=== PATIENT | male | born 1940 | race Caucasian/White ===

== ENCOUNTER 2022-02-15 12:39 | Inpatient (IN) ==
[2022-02-15 14:24] LABS: Basophils # (auto) 0.04 K/uL (0-0.2); Basophils % (auto) 0.5 %; Eosinophils # (auto) 0.17 K/uL (0-0.50); Eosinophils % (auto) 1.9 %; Hematocrit (blood only) 46.1 % (40.1-51.0); Hemoglobin 15.4 g/dl (14.0-18.0); Immature Granulocytes # (auto) 0.02 K/uL (0.00-0.02); Immature Granulocytes % (auto) 0.2 %; Lymphocytes # (auto) 2.33 K/uL (1.2-3.4); Lymphocytes % (auto) 26.4 %; Mean Corpuscular Hemoglobin 31.1 pg (25.0-34.0); Mean Corpuscular Hgb Conc 33.4 g/dL (32.0-36.0); Mean Corpuscular Volume 93.1 fL (80.0-100.0); Mean Platelet Volume 8.8 fL (9.4-12.4); Monocytes # (auto) 0.58 K/uL (0.24-0.82); Monocytes % (auto) 6.6 %; Neutrophils # (auto) 5.69 K/uL (1.4-6.5); Neutrophils % (auto) 64.4 %; Platelet Count 326 K/uL (130-400); RDW Coefficient of Variation 14.8 % (11.5-14.5); Red Blood Count 4.95 M/uL (4.63-6.08); White Blood Count 8.83 K/ul (4.8-10.8)
[2022-02-15 14:55] LABS: Alanine Aminotransferase 12 U/L (7-52); Albumin Globulin Ratio 1.6 (0.9-2); Albumin Level 4.2 gm/dl (3.4-5.0); Alkaline Phosphatase 120 U/L (34-104); Anion Gap 7 (3-11); Aspartate Aminotransferase 14 U/L (13-39); BUN Creatinine Ratio 15.3 (10-20); Bilirubin,Total 0.5 mg/dl (0.2-1.0); Blood Urea Nitrogen 19 mg/dl (6-23); Calcium 9.5 mg/dl (8.5-10.1); Carbon Dioxide 27 mmol/L (21-32); Chloride 103 mmol/L (98-107); Est GFR (African American) 61.9 ml/min; Est GFR (Non-African American) 53.4 ml/min; Globulin 2.7 gm/dl (2.5-4.0); Glucose 91 mg/dl (70-99(Fasting)); Potassium 4.5 mmol/L (3.5-5.1); Sodium 137 mmol/L (136-145); Total Protein 6.9 gm/dl (6.0-8.3)
[2022-02-15] MEDS ORDERED: OPTIRAY 320 500ml IV ONE (16:35)
--- NOTE | 2022-02-15 16:51 | CT Scan Report ---
UNENHANCED CT OF THE BRAIN; CT ANGIOGRAM OF THE BRAIN; CT ANGIOGRAM OF THE NECK CLINICAL HISTORY: Transient ischemic attack. COMPARISON STUDY: CT of the brain dated 02/12/2022. TECHNIQUE: Unenhanced axial CT scan of the brain is performed. Subsequently, following the IV adminis tration of 117 of [address] [address], CT angiogram of the head and neck was performed from the aortic arch t o the vertex. Images are reviewed in the axial, sagittal, and coronal planes. 3-D MIPS images are cre ated and assessed. IV contrast was administered without complication. All measurements were calculate d based on NASCET criteria. A dose lowering technique was utilized adhering to the principles of ALA RA. CT DOSE: 1108.22 mGy.cm FINDINGS: Brain parenchyma: There is age-related involutional change noting mild subcortical and periventricula r microangiopathic disease. There is no hemorrhage, mass effect, or evidence of acute territorial isc hemia by CT criteria. There is no evidence of enhancing mass lesion on the angiogram phase images. Th e ventricles, sulci, and cisterns are prominent secondary to involutional change. Brown-white matter d ifferentiation is preserved. No extra-axial fluid collection is seen. Thoracic aorta: There is atherosclerotic calcification of the thoracic aorta. Visualized portions of the thoracic aorta are normal in caliber. The aortic arch demonstrates variant 3-vessel anatomy. Ther e is a bovine arch, and the left vertebral artery arises directly from the thoracic aorta. Right carotid arterial system: The right common carotid artery is widely patent, as are the right int ernal and external carotid arteries. Calcified plaque is noted in the carotid bulb. Left carotid arterial system: The left common carotid artery is widely patent, as are the left internal medicine nurse practitioner al and external carotid arteries. Calcified plaque is seen in the carotid bulb. Vertebral arteries: The vertebral arteries are widely patent bilaterally and codominant. Subclavian arteries: Widely patent bilaterally. Intracranial vasculature: There is atherosclerotic calcification of the cavernous carotid and vertebr al arteries. The [place] of [place] is developmentally complete. The internal carotid arteries are kolb nt at the skull base, as are the anterior and middle cerebral arteries bilaterally. The vertebrobasil ar system and posterior cerebral arteries are widely patent. The vertebral arteries are codominant. T here is no aneurysm, high-grade stenosis, or focal vessel cut off seen throughout the intracranial ci rculation. Jugular veins: Patent bilaterally. Dural sinuses: Patent. Lung apices: Emphysematous change is seen at the apices. Upper lobe lung parenchyma is otherwise heavenly r as imaged. Soft tissues: The visualized pharyngeal soft tissues are normal in appearance noting angiographic pha se technique. The oropharyngeal airway appears widely patent. The salivary and thyroid glands are nor mal in appearance. No cervical lymphadenopathy is seen. Skeletal structures: The skeletal structures are osteopenic. The calvarium appears intact. The cervic al spine is maintained noting multilevel spondylosis. No lytic or blastic lesion is seen. Midline selena rnotomy wires are noted. Orbits: The bony orbits are intact. Orbital contents are normal as visualized noting a right ocular l ens implant. Sinuses and mastoids: There is mild mucosal thickening within the maxillary antra and ethmoid sinuses . Trace mucosal thickening is seen within the frontal and sphenoid sinuses. The mastoid air cells are well pneumatized. IMPRESSION: 1. There is no hemorrhage, mass effect, or evidence of acute territorial ischemia by CT criteria. 2. Unremarkable CT angiogram of the brain. 3. Unremarkable CT angiogram of the neck. 4. Emphysema. ACT 112: Negative or not required by law. Electronically signed by: Isauro Grullon M.D. 02/15/2022 4:49 PM
--- NOTE | 2022-02-15 18:29 | Electrocardiogram Report ---
Test Reason : Blood Pressure : / mmHG Vent. Rate : 072 BPM Atrial Rate : 072 BPM P-R Int : 198 ms QRS Dur : 090 ms QT Int : 384 ms P-R-T Axes : 007 010 042 degrees QTc Int : 420 ms Normal sinus rhythm Poor R wave progression, consider anterior AL vs. lead placement vs. LVH Abnormal ECG When compared with ECG of 12-FEB-2022 15:53, Questionable change in initial forces of Anteroseptal leads Confirmed by Kamran Kaplan ([id number]) on 02/15/2022 6:29:22 PM Referred By: Confirmed By:Joseluis Kaplan
--- NOTE | 2022-02-15 20:46 | Emergency Department Note ---
Impression & Plan Acute lacunar stroke ADMIT ED Provider Note HPI: The patient is an 81-year-old male who presents the emergency department with a chief complaint of transient headaches and visual changes that been ongoing for the past 3 days. Patient was evaluated here in the ED on 02/12 for headache and confusion, he was discharged home following a largely negative work-up. Patient presents with his family member at the bedside states that the patient has been complaining of some headaches in the morning as well as some transient visual changes yesterday that were binocular in nature, therefore they presented to the ED today after discussing the symptoms with her PCP who was concerned for possible ischemic etiology. On arrival here to the ED the patient appears well, he is alert and oriented, he does not display any focal deficits on my exam, he states currently he is asymptomatic. He states his headaches have been frontal in nature and occur more often in the mornings. He has not had any other confusion aside from the episode he had on 02/12 but the visual changes yesterday are transient but new in nature. Patient presents with an NIH scale of 0 on my initial assessment. ROS: -Neuro: Transient visual changes, transient headaches, previous episode of confusion *10 point review systems was conducted and is otherwise negative unless stated above *Outpatient medications and allergy history reviewed PE: General: Alert HEENT: Normocephalic, trachea midline Eyes: Extraocular eye movement is intact, no scleral erythema Pulmonary: Clear to auscultation bilaterally, no wheezing Cardio: Regular rate and rhythm GI: Abdomen is soft, nontender : No suprapubic tenderness MSK: No evidence of trauma or malformation of the extremities, no edema Skin: No evidence of rash Neuro: Alert, no focal deficits Psychiatric: Cooperative cafeteria monitor: - An order was placed for continuous cardiac monitoring - Patient was noted to be in sinus rhythm with a rate of 65 EKG: Rate: 72 Rhythm: Normal sinus rhythm Intervals: Within normal limits ST changes: No ST elevation Time: 1338 MRI HEAD Without Contrast: Comparison to head CT from February 12, 2022. Mild cerebral atrophy and periventricular white matter T2 hyperintensity consist ent with chronic small vessel disease and/or senescent changes, unchanged. There is a 5 mm focus of diffusion restriction of the deep white matter the right frontal lobe consistent with an acute lacunar infarct. Mild mucosal thickening in the inferior aspect of both maxillary sinuses which appears chronic. The posterior fossa and cerebellopontine angles appear within normal limits. Radiologist: Lonnie Bain MD Study ready at 22:38 and initial results transmitted at 23:51 Communications: Clear Time Type Notes 02/16/22 00:00 Call Doctor Regarding Prahbjot tarango, called Dr. Ibanez on 02/16 00:00 (- 05:00) Interventions provided in ED: -Aspirin NIH STROKE SCALE: 1A: Level of consciousness Alert; keenly responsive 0 1B: Ask month and age Both questions right 0 1C: 'Blink eyes' & 'squeeze hands' Performs both tasks 0 2: Horizontal extraocular movements Normal 0 3: Visual corona No visual loss 0 4: Facial palsy Normal symmetry 0 5A: Left arm motor drift No drift for 10 seconds 0 5B: Right arm motor drift No drift for 10 seconds 0 6A: Left leg motor drift No drift for 5 seconds 0 6B: Right leg motor drift No drift for 5 seconds 0 7: Limb Ataxia No ataxia 0 8: Sensation Normal; no sensory loss 0 9: Language/aphasia Normal; no aphasia 0 10: Dysarthria Normal 0 11: Extinction/inattention No abnormality 0 TOTAL NIH SCORE =0 Medical Decision Making: Patient presented to the emergency department with some ongoing symptoms that are transient in nature including headaches in the morning, he has been having some visual changes, had an episode of recent confusion. CT imaging and CT angiography are negative, on my assessment the patient has an NIH stroke scale of 0. Given his recent symptoms MRI imaging of the brain was obtained following my discussion with the patient, this does show concern for acute lacunar in farde. Patient remained otherwise stable while here in the ED, lab work is largely unremarkable, on my reassessment the patient is resting comfortably in bed. Remains without any focal deficits. I discussed all the above with the patient and his family member at the bedside, patient does not have any close outpatient follow-up here locally as he recently moved to [facility], I do feel it would be apple eficial for him to be admitted for secondary stroke work-up and for outpatient follow-up to be arranged prior to his discharge. Patient was in agreement to this as was his family member at the bedside, he was given a dose of aspirin prior to admission, case was discussed with the on-call hospitalist for [facility] and the patient was admitted in stable condition for further care. Diagnosis: 1. Headache, acute, transient, not intractable 2. Transient visual changes, binocular 3. Acute lacunar infarct, right frontal lobe Disposition: Admission Doug Ibanez DO Emergency Medicine Past Med/Surg History Medical History (Updated 02/16/22 @ 03:04 by Doug Ibanez DO) CAD (coronary atherosclerotic disease) GERD (gastroesophageal reflux disease) Gout Hypertension Leg edema Prostate cancer Surgical History H/O prostatectomy Hx of CABG Social History Smoking Status: Former smoker Feels Safe at Home: Yes Allergies Allergies Allergy/AdvReac Type Severity Reaction Status Date / Time No Known Allergies Allergy Verified 02/15/22 21:07 Home Meds Home Medications Medication Instructions Recorded Confirmed acetaminophen 500 mg tablet 1,000 mg PO Q6H PRN Pain 02/15/22 02/15/22 (Tylenol Extra Strength) allopurinol 100 mg tablet 100 mg PO BID 02/15/22 02/15/22 aspirin 81 mg tablet,delayed 81 mg PO DAILY 02/15/22 02/15/22 release atorvastatin 40 mg tablet 40 mg PO Q OTHER DAY 02/15/22 02/15/22 cholecalciferol (vitamin D3) 25 25 mcg PO DAILY 02/15/22 02/15/22 mcg (1,000 unit) capsule (Vitamin D3) diltiazem HCl 120 mg 120 mg PO DAILY 02/15/22 02/15/22 capsule,extended release 24 hr (Cardizem CD) furosemide 20 mg tablet 20 mg PO DAILY 02/15/22 02/15/22 hydrocodone 5 mg-acetaminophen 325 1 tab PO Q8H PRN Pain 02/15/22 02/15/22 mg tablet metoprolol succinate 50 mg 50 mg PO DAILY 02/15/22 02/15/22 tablet,extended release 24 hr multivitamin 1 tab PO DAILY 02/15/22 02/15/22 omeprazole 20 mg capsule,delayed 20 mg PO DAILY 02/15/22 02/15/22 release potassium chloride 10 mEq 10 meq PO DAILY 02/15/22 02/15/22 tablet,extended release sennosides 8.6 mg capsule (senna) 8.6 mg PO DAILY PRN Constipation 02/15/22 02/15/22 zinc gluconate 50 mg tablet 50 mg PO DAILY 02/15/22 02/15/22 Results & Data (ED) Vital Signs Vital Signs - 24 hr 02/15/22 12:46 02/15/22 20:37 02/15/22 20:38 Temperature 36.8 C Temperature Source Temporal Artery Scan Pulse Rate 75 76 Pulse Rate [Apical] Pulse Rate [Finger] Pulse Rate from SpO2 Sensor Pulse Rhythm Regular Regular Pulse Strength Normal Respiratory Rate 20 18 Respiratory Effort / Characteristics Non-Labored Spontaneous Respiratory Depth Normal Respiratory Pattern Regular Blood Pressure 162/76 H Blood Pressure [Right Arm] Blood Pressure Mean 104 Blood Pressure Mean [Right Arm] Blood Pressure Position Sitting Blood Pressure Position [Right Arm] Pulse Oximetry 94 94 97 Oxygen Delivery Method Room Air Room Air Room Air Sepsis Recent Fever Within 48 Hours No Sepsis New/Unexplained Change in Mental Status N/A Sepsis Action Taken by Nursing No Action Required 02/15/22 20:39 02/15/22 21:30 02/15/22 21:40 Temperature Temperature Source Pulse Rate 69 72 Pulse Rate [Apical] 77 Pulse Rate [Finger] Pulse Rate from SpO2 Sensor 69 72 Pulse Rhythm Pulse Strength Respiratory Rate 20 17 13 Respiratory Effort / Characteristics Non-Labored Spontaneous Respiratory Depth Normal Respiratory Pattern Blood Pressure Blood Pressure [Right Arm] 144/70 H Blood Pressure Mean Blood Pressure Mean [Right Arm] 94 Blood Pressure Position Blood Pressure Position [Right Arm] Lying Pulse Oximetry 97 94 94 Oxygen Delivery Method Room Air Room Air Room Air Sepsis Recent Fever Within 48 Hours Sepsis New/Unexplained Change in Mental Status Sepsis Action Taken by Nursing 02/15/22 22:39 02/15/22 22:36 02/15/22 23:30 Temperature Temperature Source Pulse Rate Pulse Rate [Apical] Pulse Rate [Finger] 63 Pulse Rate from SpO2 Sensor 65 60 Pulse Rhythm Pulse Strength Respiratory Rate 18 Respiratory Effort / Characteristics Non-Labored Spontaneous Respiratory Depth Normal Respiratory Pattern Regular Blood Pressure 148/69 H 131/62 Blood Pressure [Right Arm] 148/69 H Blood Pressure Mean 95 85 Blood Pressure Mean [Right Arm] 95 Blood Pressure Position Blood Pressure Position [Right Arm] Lying Pulse Oximetry 95 95 95 Oxygen Delivery Method Room Air Room Air Room Air Sepsis Recent Fever Within 48 Hours Sepsis New/Unexplained Change in Mental Status Sepsis Action Taken by Nursing 02/16/22 01:00 02/16/22 01:48 Temperature Temperature Source Pulse Rate 63 64 Pulse Rate [Apical] Pulse Rate [Finger] Pulse Rate from SpO2 Sensor 67 Pulse Rhythm Pulse Strength Respiratory Rate 19 22 Respiratory Effort / Characteristics Respiratory Depth Respiratory Pattern Blood Pressure 150/62 H 145/59 H Blood Pressure [Right Arm] Blood Pressure Mean 91 87 Blood Pressure Mean [Right Arm] Blood Pressure Position Blood Pressure Position [Right Arm] Pulse Oximetry 96 Oxygen Delivery Method Room Air Sepsis Recent Fever Within 48 Hours Sepsis New/Unexplained Change in Mental Status Sepsis Action Taken by Nursing Laboratory Data Result diagrams: 02/15/22 13:54 02/15/22 13:54 Lab Results 02/15/22 02/15/22 02/16/22 Range/Units 13:54 13:54 00:26 WBC 8.83 (4.8-10.8) K/ul RBC 4.95 (4.63-6.08) M/uL Hgb 15.4 (14.0-18.0) g/dl Hct 46.1 (40.1-51.0) % MCV 93.1 (80.0-100.0) fL MCH 31.1 (25.0-34.0) pg MCHC 33.4 (32.0-36.0) g/dL RDW Std Deviation 51.0 H (36.4-46.3) fL RDW Coeff of Marleen 14.8 H (11.5-14.5) % Plt Count 326 (130-400) K/uL MPV 8.8 L (9.4-12.4) fL Immature Gran % (Auto) 0.2 % Neut % (Auto) 64.4 % Lymph % (Auto) 26.4 % [place] % (Auto) 6.6 % Eos % (Auto) 1.9 % Baso % (Auto) 0.5 % Neut # (Auto) 5.69 (1.4-6.5) K/uL Lymph # (Auto) 2.33 (1.2-3.4) K/uL [place] # (Auto) 0.58 (0.24-0.82) K/uL Eos # (Auto) 0.17 (0-0.50) K/uL Baso # (Auto) 0.04 (0-0.2) K/uL Immature Gran # (Auto) 0.02 (0.00-0.02) K/uL Sodium 137 (136-145) mmol/L Potassium 4.5 (3.5-5.1) mmol/L Chloride 103 (98-107) mmol/L Carbon Dioxide 27 (21-32) mmol/L Anion Gap 7 (3-11) BUN 19 (6-23) mg/dl Creatinine 1.24 (0.6-1.4) mg/dl Est Cr Clr Drug Dosing Not Reportable Est GFR ( Amer) 61.9 ml/min Est GFR (Non-Af Amer) 53.4 ml/min BUN/Creatinine Ratio 15.3 (10-20) Glucose 91 (70-99(Fasting)) mg/dl Calcium 9.5 (8.5-10.1) mg/dl Total Bilirubin 0.5 (0.2-1.0) mg/dl AST 14 (13-39) U/L ALT 12 (7-52) U/L Alkaline Phosphatase 120 H (34-104) U/L Total Protein 6.9 (6.0-8.3) gm/dl Albumin 4.2 (3.4-5.0) gm/dl Globulin 2.7 (2.5-4.0) gm/dl Albumin/Globulin Ratio 1.6 (0.9-2) SARS-CoV-2, RNA, NAAT NEGATIVE (NEGATIVE) Administered Medications Discontinued Medications Aspirin (Aspirin Chew 324 Mg) 324 mg PO NOW STA Stop: 02/15/22 23:59 Last Admin: 02/16/22 00:07 Dose: 324 mg Documented By: Ioversol (Optiray 320 500ml) 117 ml IV ONCE ONE Stop: 02/15/22 16:36 Last Admin: 02/15/22 16:37 Dose: 117 ml Documented By: EDK Imaging Data Radiologist's Impression: Head CTA 02/15/22 12:[address] OF THE BRAIN; CT ANGIOGRAM OF THE BRAIN; CT ANGIOGRAM OF THE NECK CLINICAL HISTORY: Transient ischemic attack. COMPARISON STUDY: CT of the brain dated 02/12/2022. TECHNIQUE: Unenhanced axial CT scan of the brain is performed. Subsequently, following the IV administration of 117 of Optiray 320, CT angiogram of the head and neck was performed from the aortic arch to the vertex. Images are reviewed in the axial, sagittal, and coronal planes. 3-D MIPS images are created and assessed. IV contrast was administered without complication. All measurements were calculated based on NASCET criteria. A dose lowering technique was utilized adhering to the principles of ALARA. CT DOSE: 1108.22 mGy.cm FINDINGS: Brain parenchyma: There is age-related involutional change noting mild subcortical and periventricular microangiopathic disease. There is no hemorrhage, mass effect, or evidence of acute territorial ischemia by CT criteria. There is no evidence of enhancing mass lesion on the angiogram phase images. The ventricles, sulci, and cisterns are prominent secondary to involutional change. Brown-white matter differentiation is preserved. No extra- axial fluid collection is seen. Thoracic aorta: There is atherosclerotic calcification of the thoracic aorta. Visualized portions of the thoracic aorta are normal in caliber. The aortic arch demonstrates variant 3-vessel anatomy. There is a bovine arch, and the left vertebral artery arises directly from the thoracic aorta. Right carotid arterial system: The right common carotid artery is widely patent, as are the right internal and external carotid arteries. Calcified plaque is noted in the carotid bulb. Left carotid arterial system: The left common carotid artery is widely patent, as are the left internal and external carotid arteries. Calcified plaque is seen in the carotid bulb. Vertebral arteries: The vertebral arteries are widely patent bilaterally and codominant. Subclavian arteries: Widely patent bilaterally. Intracranial vasculature: There is atherosclerotic calcification of the cavernous carotid and vertebral arteries. The [place] of [place] is developmentally complete. The internal carotid arteries are patent at the skull base, as are the anterior and middle cerebral arteries bilaterally. The vertebrobasilar system and posterior cerebral arteries are widely patent. The vertebral arteries are codominant. There is no aneurysm, high-grade stenosis, or focal vessel cut off seen throughout the intracranial circulation. Jugular veins: Patent bilaterally. Dural sinuses: Patent. Lung apices: Emphysematous change is seen at the apices. Upper lobe lung parenchyma is otherwise clear as imaged. Soft tissues: The visualized pharyngeal soft tissues are normal in appearance noting angiographic phase technique. The oropharyngeal airway appears widely patent. The salivary and thyroid glands are normal in appearance. No cervical lymphadenopathy is seen. Skeletal structures: The skeletal structures are osteopenic. The calvarium appears intact. The cervical spine is maintained noting multilevel spondylosis. No lytic or blastic lesion is seen. Midline sternotomy wires are noted. Orbits: The bony orbits are intact. Orbital contents are normal as visualized noting a right ocular lens implant. Sinuses and mastoids: There is mild mucosal thickening within the maxillary antra and ethmoid sinuses. Trace mucosal thickening is seen within the frontal and sphenoid sinuses. The mastoid air cells are well pneumatized. IMPRESSION: 1. There is no hemorrhage, mass effect, or evidence of acute territorial ischemia by CT criteria. 2. Unremarkable CT angiogram of the brain. 3. Unremarkable CT angiogram of the neck. 4. Emphysema. ACT 112: Negative or not required by law. Electronically signed by: Isauro Grullon M.D. 02/15/2022 4:49 PM Neck CTA 02/15/22 12:[address] OF THE BRAIN; CT ANGIOGRAM OF THE BRAIN; CT ANGIOGRAM OF THE NECK CLINICAL HISTORY: Transient ischemic attack. COMPARISON STUDY: CT of the brain dated 02/12/2022. TECHNIQUE: Unenhanced axial CT scan of the brain is performed. Subsequently, following the IV administration of 117 of Optiray 320, CT angiogram of the head and neck was performed from the aortic arch to the vertex. Images are reviewed in the axial, sagittal, and coronal planes. 3-D MIPS images are created and assessed. IV contrast was administered without complication. All measurements were calculated based on NASCET criteria. A dose lowering technique was utilized adhering to the principles of ALARA. CT DOSE: 1108.22 mGy.cm FINDINGS: Brain parenchyma: There is age-related involutional change noting mild subcortical and periventricular microangiopathic disease. There is no hemorrhage, mass effect, or evidence of acute territorial ischemia by CT criteria. There is no evidence of enhancing mass lesion on the angiogram phase images. The ventricles, sulci, and cisterns are prominent secondary to inv olutional change. Brown-white matter differentiation is preserved. No extra-axial fluid collection is seen. Thoracic aorta: There is atherosclerotic calcification of the thoracic aorta. Visualized portions of the thoracic aorta are normal in caliber. The aortic arch demonstrates variant 3-vessel anatomy. There is a bovine arch, and the left vertebral artery arises directly from the thoracic aorta. Right carotid arterial system: The right common carotid artery is widely patent, as are the right internal and external carotid arteries. Calcified plaque is noted in the carotid bulb. Left carotid arterial system: The left common carotid artery is widely patent, as are the left internal and external carotid arteries. Calcified plaque is seen in the carotid bulb. Vertebral arteries: The vertebral arteries are widely patent bilaterally and codominant. Subclavian arteries: Widely patent bilaterally. Intracranial vasculature: There is atherosclerotic calcification of the cavernous carotid and vertebral arteries. The [place] of [place] is dev elopmentally complete. The internal carotid arteries are patent at the skull base, as are the anterior and middle cerebral arteries bilaterally. The vertebrobasilar system and posterior cerebral arteries are widely patent. The vertebral arteries are codominant. There is no aneurysm, high-grade stenosis, or focal vessel cut off seen throughout the intracranial circulation. Jugular veins: Patent bilaterally. Dural sinuses: Patent. Lung apices: Emphysematous change is seen at the apices. Upper lobe lung parenchyma is otherwise clear as imaged. Soft tissues: The visualized pharyngeal soft tissues are normal in appearance noting angiographic phase technique. The oropharyngeal airway appears widely patent. The salivary and thyroid glands are normal in appearance. No cervical lymphadenopathy is seen. Skeletal structures: The skeletal structures are osteopenic. The calvarium appears intact. The cervical spine is maintained noting multilevel spondylosis. No lytic or blastic lesion is seen. Midline sternotomy wires are noted. Orbits: The bony orbits are intact. Orbital contents are normal as visualized noting a right ocular lens implant. Sinuses and mastoids: There is mild mucosal thickening within the maxillary antra and ethmoid sinuses. Trace mucosal thickening is seen within the frontal and sphenoid sinuses. The mastoid air cells are well pneumatized. IMPRESSION: 1. There is no hemorrhage, mass effect, or evidence of acute territorial ischemia by CT criteria. 2. Unremarkable CT angiogram of the brain. 3. Unremarkable CT angiogram of the neck. 4. Emphysema. ACT 112: Negative or not required by law. Electronically signed by: Isauro Grullon M.D. 02/15/2022 4:[address] 02/15/22 13:[address] OF THE BRAIN; CT ANGIOGRAM OF THE BRAIN; CT ANGIOGRAM OF THE NECK CLINICAL HISTORY: Transient ischemic attack. COMPARISON STUDY: CT of the brain dated 02/12/2022. TECHNIQUE: Unenhanced axial CT scan of the brain is performed. Subsequently, following the IV administration of 117 of Optiray 320, CT angiogram of the head and neck was performed from the aortic arch to the vertex. Images are reviewed in the axial, sagittal, and coronal planes. 3-D MIPS images are created and assessed. IV contrast was administered without complication. All measurements were calculated based on NASCET criteria. A dose lowering technique was utiliz ed adhering to the principles of ALARA. CT DOSE: 1108.22 mGy.cm FINDINGS: Brain parenchyma: There is age-related involutional change noting mild subcortical and periventricular microangiopathic disease. There is no hemorrh age, mass effect, or evidence of acute territorial ischemia by CT criteria. There is no evidence of enhancing mass lesion on the angiogram phase images. The ventricles, sulci, and cisterns are prominent secondary to involutional change. Brown-white matter differentiation is preserved. No extra-axial fluid collection is seen. Thoracic aorta: There is atherosclerotic calcification of the thoracic aorta. Visualized portions of the thoracic aorta are normal in caliber. The aortic arch demonstrates variant 3-vessel anatomy. There is a bovine arch, and the left vertebral artery arises directly from the thoracic aorta. Right carotid arterial system: The right common carotid artery is widely patent, as are the right internal and external carotid arteries. Calcified plaque is noted in the carotid bulb. Left carotid arterial system: The left common carotid artery is widely patent, as are the left internal and external carotid arteries. Calcified plaque is seen in the carotid bulb. Vertebral arteries: The vertebral arteries are widely patent bilaterally and codominant. Subclavian arteries: Widely patent bilaterally. Intracranial vasculature: There is atherosclerotic calcification of the cavernous carotid and vertebral arteries. The [place] of [place] is developmentally complete. The internal carotid arteries are patent at the skull base, as are the anterior and middle cerebral arteries bilaterally. The vertebrobasilar system and posterior cerebral arteries are widely patent. The vertebral arteries are codominant. There is no aneurysm, high-grade stenosis, or focal vessel cut off seen throughout the intracranial circulation. Jugular veins: Patent bilaterally. Dural sinuses: Patent. Lung apices: Emphysematous change is seen at the apices. Upper lobe lung parenchyma is otherwise clear as imaged. Soft tissues: The visualized pharyngeal soft tissues are normal in appearance noting angiographic phase technique. The oropharyngeal airway appears widely patent. The salivary and thyroid glands are normal in appearance. No cervical lymphadenopathy is seen. Skeletal structures: The skeletal structures are osteopenic. The calvarium appears intact. The cervical spine is maintained noting multilevel spondylosis. No lytic or blastic lesion is seen. Midline sternotomy wires are noted. Orbits: The bony orbits are intact. Orbital contents are normal as visualized noting a right ocular lens implant. Sinuses and mastoids: There is mild mucosal thickening within the maxillary antra and ethmoid sinuses. Trace mucosal thickening is seen within the frontal and sphenoid sinuses. The mastoid air cells are well pneumatized. IMPRESSION: 1. There is no hemorrhage, mass effect, or evidence of acute territorial ischemia by CT criteria. 2. Unremarkable CT angiogram of the brain. 3. Unremarkable CT angiogram of the neck. 4. Emphysema. ACT 112: Negative or not required by law. Electronically signed by: Isauro Grullon M.D. 02/15/2022 4:49 PM Discharge Plan Visit Data Chief Complaint: Stroke/CVA Symptoms Stated Complaint: SEVERE HEADACHE, HIGH BP, TIA SYMPTOMS, PREV STROK ED Provider: Doug Ibanez Discharge Problem: Acute lacunar stroke Forms Stand Alone Forms: My [facility] Prescriptions Prescriptions: No Action multivitamin Tablet 1 tab PO DAILY atorvastatin 40 mg tablet 40 mg PO Q OTHER DAY metoprolol succinate 50 mg tablet extended release 24 hr 50 mg PO DAILY hydrocodone-acetaminophen 5-325 mg tablet 1 tab PO Q8H PRN (Reason: Pain) potassium chloride 10 mEq tablet extended release 10 meq PO DAILY allopurinol 100 mg tablet 100 mg PO BID aspirin 81 mg Tablet,Delayed Release (Dr/Ec) 81 mg PO DAILY acetaminophen [Tylenol Extra Strength] 500 mg Tablet 1,000 mg PO Q6H PRN (Reason: Pain) omeprazole 20 mg capsule,delayed release(DR/EC) 20 mg PO DAILY diltiazem HCl [Cardizem CD] 120 mg Capsule,Extended Release 24hr 120 mg PO DAILY zinc gluconate 50 mg Tablet 50 mg PO DAILY furosemide 20 mg tablet 20 mg PO DAILY cholecalciferol (vitamin D3) [Vitamin D3] 25 mcg (1,000 unit) Capsule 25 mcg PO DAILY senna 8.6 mg Capsule 8.6 mg PO DAILY PRN (Reason: Constipation) Referrals Referrals: PCP,NO [Physician] -
[2022-02-15] MEDS ORDERED: ASPIRIN CHEW 324 MG PO STA (23:58)
--- NOTE | 2022-02-16 01:44 | History & Physical Report ---
Date of Service February 16, 2022 Assessment & Plan (1) Lacunar infarct, acute: Plan: Intermittent headaches, blurry vision and double vision for last 3 days - symptoms started in the morning on 02/12. MRI brain showing 5mm focus of diffusion restriction in right frontal lobe consistent with acute lacunar infarct, as well as signs of chronic microvascular ischemic disease. - Currently asymptomatic with NIHSS score of 0 - s/p Aspirin 324mg in ED - continue with Aspirin 81mg PO daily - add Plavix 75mg PO daily starting in the AM (minor CVA with NIHSS <5) - would likely benefit from DAPT x21 days, followed by monotherapy - defer to Neurology - consulted Neurology - appreciate recs - elevate head of bed, NIHSS/stroke checks - maintain permissive HTN <220/120 for now (although symptoms started ~72 hours ago) - patient passed dysphagia assessment in ED - ordered regular diet - check A1c/lipid profile in AM for risk stratification - check TTE (2) CAD (coronary atherosclerotic disease): Plan: S/p CABG in 2017. Continue ASA as stated above (3) Hypertension: Plan: BP 140s-150s/60s-70s in ED. Hold BB/CCB as stated above. (4) HLD (hyperlipidemia): Plan: Chronic, on Atorvastatin 40mg QOD - increase Atorvastatin to 80mg PO daily - check lipid profile as stated above (5) Leg edema: Plan: On daily Lasix for LE edema, without previous diagnosis of CHF. - check TTE as stated above - hold Lasix as stated above (6) Gout: Plan: Continue home Allopurinol (7) GERD (gastroesophageal reflux disease): Plan: Protonix per hospital formulary Plan FEN/GI: regular diet DVT Prophylaxis: Lovenox SQ Code Status: full code Disposition: med/tele, PT/OT ordered History of Present Illness Chief Complaint: stroke Primary Care Provider: CHERELLE IBARRA Edpiper Esqueda is an 81yo male with PMHx significant for CAD (s/p CABG in 2017), HTN, HLD, GERD and gout who presented to [facility] ED on 02/16 for intermittent frontal headaches and visual changes for the last 3 days. Patient was evaluated in our ED on 02/12 for frontal headache, blurry vision with occasional double vision and confusion and was discharged after unremarkable labs and CT head w/o contrast. Headaches have occurred mostly in the mornings, and the visual changes occurred only twice in the last several days and resolved after several hours. On arrival to ED today patient was A+Ox4 and without headache, visual deficits, or strength/sensation deficits. Reports that he is asymptomatic and feels fine. Patient has a 90 pack year smoking history and quit in 1989. Denies alcohol use or drug use. Denies previous stroke. Takes Lasix daily for LE edema but denies h/o CHF. Has never taken blood thinner besides for Aspirin in the past. He is proficient in ADLs and nearly all iADLs - uses a cane for ambulation. In the ED the patient was afebrile and hemodynamically stable on room air. Labs unremarkable. COVID-19 negative. Brain MRI showed 5mm focus of diffusion restriction in right frontal lobe consistent with acute lacunar infarct. Also showed signs of chronic microvascular ischemic disease. CT head and CTA head/neck unremarkable, apart from incidental finding of emphysema. In ED patient was given Aspirin 324mg. Allergies Allergy/AdvReac Type Severity Reaction Status Date / Time No Known Allergies Allergy Verified 02/15/22 21:07 Home Medications Medication Instructions Recorded Confirmed Type acetaminophen 500 mg tablet 1,000 mg PO Q6H PRN Pain 02/15/22 02/15/22 History (Tylenol Extra Strength) allopurinol 100 mg tablet 100 mg PO BID 02/15/22 02/15/22 History aspirin 81 mg tablet,delayed 81 mg PO DAILY 02/15/22 02/15/22 History release cholecalciferol (vitamin D3) 25 25 mcg PO DAILY 02/15/22 02/15/22 History mcg (1,000 unit) capsule (Vitamin D3) diltiazem HCl 120 mg 120 mg PO DAILY 02/15/22 02/15/22 History capsule,extended release 24 hr (Cardizem CD) furosemide 20 mg tablet 20 mg PO DAILY 02/15/22 02/15/22 History hydrocodone 5 mg-acetaminophen 325 1 tab PO Q8H PRN Pain 02/15/22 02/15/22 History mg tablet metoprolol succinate 50 mg 50 mg PO DAILY 02/15/22 02/15/22 History tablet,extended release 24 hr multivitamin 1 tab PO DAILY 02/15/22 02/15/22 History omeprazole 20 mg capsule,delayed 20 mg PO DAILY 02/15/22 02/15/22 History release potassium chloride 10 mEq 10 meq PO DAILY 02/15/22 02/15/22 History tablet,extended release sennosides 8.6 mg capsule (senna) 8.6 mg PO DAILY PRN Constipation 02/15/22 02/15/22 History zinc gluconate 50 mg tablet 50 mg PO DAILY 02/15/22 02/15/22 History atorvastatin 40 mg tablet 40 mg PO DAILY 30 days #30 tabs 02/17/22 02/15/22 Rx clopidogrel 75 mg tablet 75 mg PO QAM 21 days #21 tabs 02/17/22 Rx pantoprazole 20 mg tablet,delayed 20 mg PO DAILY 21 days #21 tabs 02/17/22 Rx release Past Med/Surg History Medical History (Updated 02/16/22 @ 11:00 by Jose Mccracken MD) CAD (coronary atherosclerotic disease) GERD (gastroesophageal reflux disease) Gout Hypertension Leg edema Prostate cancer Surgical History H/O prostatectomy Hx of CABG Social History Smoking Status: Former smoker Hx Alcohol Use: No Hx Substance Use: No Preferred Language: Belgian Communication Ability: Effective Hvac Estimator Required: No Beliefs That Will Affect Care: None Current Living Situation: Alone Feels Safe at Home: Yes Assistive Devices: Cane, Denture - Upper, Denture - Lower and Walker Review of Systems Review of Systems: All systems reviewed & are unremarkable except as noted in HPI & below Physical Exam Physical Exam: General: A&Ox3. NAD. Cooperative. HEENT: Atraumatic, normocephalic. Pulm: CTAB A&P. -wheezes, -rales, -rhonchi. Symmetrical chest rise. No increase work of breathing. No respiratory distress. Cardiac: RRR, -mrg. Radial pulses intact and symmetrical. No LE edema. Abdominal: soft, non-tender, non-distended, BS x 4 Skin: warm, dry, no rash Neurologic: patellar DTR's 2+ bilat, sensation intact and PERRL, EOMI, accommodation nl, no face palsy, no dysarthria normal touch/pain/proprioception, CN's II-XI intact bilaterally, deep tendon reflexes 2+ bilaterally, moves all extremities and awake; no focal motor deficits Speech / Cognition: normal speech Motor/Sensory: no tremor and no pronator drift Gait: no ataxic gait Coordination: normal [id number] test and normal [id number] test Results & Data Results & Data ([facility]) Vital Signs (Past 12 Hours) Vital Signs Pulse Pulse Pulse Resp BP Pulse Ox O2 Del Method 02/15/22 22:39 63 18 148/69 H 95 Room Air 02/15/22 21:40 72 13 94 Room Air 02/15/22 21:30 69 17 94 Room Air 02/15/22 20:39 77 20 144/70 H 97 Room Air 02/15/22 20:38 76 18 97 Room Air 02/15/22 20:37 94 Room Air Supervising Physician Co-Signing Physician Notes Pt seen and examined in concert with . Agree with the documented findings as noted in the resident documentation in both the history and the Physical eaxma and discussed with him the overall plan in detail. Resident Activity Tracking Resident Involvement: Resident Care Provided Care Provided: Adult Hospital Medicine
[2022-02-16] MEDS ORDERED: PHARMACIST DISCHARGE MED REC CONSULT PRN (04:05)
[2022-02-16] MEDS ORDERED: ACETAMINOPHEN 500 MG TAB PO PRN (04:05)
--- NOTE | 2022-02-16 07:11 | Magnetic Resonance Report ---
MR brain wo con CLINICAL HISTORY: visual changes, eval for stroke TECHNIQUE: Multiplanar and multisequence MR images of the brain were obtained without intravenous con trast. Comparison: Comparison is made to CTA head and neck 02/07/2022 FINDINGS: 5 mm focus of restricted diffusion in the deep white matter of the right frontal lobe. Foci of T2 and FLAIR hyperintensity are noted in the paraventricular areas consistent with chronic small vessel isc hemic disease. Ex vacuo ventriculomegaly and sulcal enlargement is noted compatible with diffuse ence phalomalacia. No mass is seen. There is no mass effect or midline shift. There is a focus of suscepti bility artifact in the right frontal lobe cortex. No extra axial fluid collections are seen. The rio us callosum, pituitary gland, and cerebellar tonsils appear grossly unremarkable. Flow voids of the major intracranial arterial vessels are identified. The imaged portions of the para nasal sinuses, mastoid air cells, and orbits are unremarkable. IMPRESSION: 5 mm focus of restricted diffusion in the deep white matter of the right frontal lobe compatible with acute infarct. Right frontal lobe susceptibility artifact may represent age-indeterminate but likely chronic hemorrhage, no corresponding calcification is seen on prior CT ACT 112: Negative or not required by law. Electronically signed by: Krsihna Maya M.D. 02/16/2022 7:09 AM
[2022-02-16 07:30] LABS: Basophils # (auto) 0.04 K/uL (0-0.2); Basophils % (auto) 0.4 %; Eosinophils # (auto) 0.19 K/uL (0-0.50); Hematocrit (blood only) 42.7 % (40.1-51.0); Hemoglobin 14.4 g/dl (14.0-18.0); Immature Granulocytes # (auto) 0.03 K/uL (0.00-0.02); Immature Granulocytes % (auto) 0.3 %; Lymphocytes # (auto) 2.97 K/uL (1.2-3.4); Lymphocytes % (auto) 30.9 %; Mean Corpuscular Hemoglobin 30.8 pg (25.0-34.0); Mean Corpuscular Hgb Conc 33.7 g/dL (32.0-36.0); Mean Corpuscular Volume 91.4 fL (80.0-100.0); Mean Platelet Volume 8.5 fL (9.4-12.4); Monocytes # (auto) 0.67 K/uL (0.24-0.82); Neutrophils % (auto) 59.4 %; Platelet Count 286 K/uL (130-400); RDW Coefficient of Variation 14.8 % (11.5-14.5); RDW Standard Deviation 49.4 fL (36.4-46.3); Red Blood Count 4.67 M/uL (4.63-6.08)
[2022-02-16 07:51] LABS: Calcium 8.9 mg/dl (8.5-10.1); Chol HDL Ratio 4.1 (0-5); Creatinine Clr Calc Pharmacy 51.9 ml/min; Est GFR (African American) 63.2 ml/min; Est GFR (Non-African American) 54.5 ml/min; Potassium 4.1 mmol/L (3.5-5.1)
[2022-02-16] MEDS: allopurinoL 100 MG TAB PO SCH (08:15)
[2022-02-16] MEDS: CLOPIDOGREL BISULFATE 75 MG TAB PO SCH (08:15)
[2022-02-16] MEDS: ASPIRIN 81 MG ECTAB PO SCH (08:15)
[2022-02-16] MEDS: PANTOprazole 40 MG TAB PO SCH (08:15)
[2022-02-16] MEDS: ENOXAPARIN INJ 30 MG/0.3 ML SYR SQ SCH (08:15)
[2022-02-16] MEDS: ATORVASTATIN 40 MG TAB PO SCH (08:15)
[2022-02-16 08:22] LABS: Estimated Average Glucose 123 mg/dl; Hemoglobin A1C 5.9 % (4.5-5.6)
--- NOTE | 2022-02-16 10:48 | Neurology Consultation ---
Date of Consultation February 16, 2022 Assessment & Plan (1) Head ache: Patient with onset of bifrontal headache 4 days ago, associated with 25 minutes of visual blurring and trouble thinking. Has a history of migraines 30 years ago. I doubt the tiny area of increased signal seen on diffusion imaging is res ponsible for any of these symptoms, and may be a coincidental or incidental finding. It does not look dark on the ADC map, on the images available to me to review. Would question whether this reflects a return of the patient's prior migraines. Nonetheless we should also check ESR and CRP. Angiography without significant flow impairment. The intermittent nature speaks against something like a venous thrombosis. Will need echocardiogram, dual antiplatelet therapy for 3 weeks, then return to aspirin monotherapy. Optimal control of vascular risk factors, though again it is unclear whether the patient is actually had a true acute stroke. Will be difficult to know if the patient is experiencing migraines, unless he should have further events with complete resolution in between. History of Present Illness Reason for Consultation: Possible stroke Attending Physician: Annie Vega MD History of Present Illness Patient reports doing well until the morning of 02/12. He developed a bifrontal headache, and some type of visual disruption, where it felt difficult to focus on what he was looking at. There may have been a component of bright or flashing lights, that was uncomfortable. The visual disruption resolved after 20 to 25 minutes, but he was left with a headache. He came to the emergency department and was evaluated. Subsequently sent home. Since that time he has had a fluctuating bifrontal headache but none of the other symptoms have returned. This concerned him that he represented yesterday and has been admitted. MRI brain reported a tiny area of suspected acute ischemia in the right periventricular region. This morning he feels fine except he once again developed a bifrontal headache, which was relieved by Tylenol. At no point did he have focal weakness or numbness of arms legs or face. Reports a history of "migraines" 30 years ago but none since. Unclear if he is formally diagnosed with migraines, he does not remember. These were headaches that were associated with visual scotoma, nausea, and severe pain. Allergies Allergy/AdvReac Type Severity Reaction Status Date / Time No Known Allergies Allergy Verified 02/15/22 21:07 Home Medications Medication Instructions Recorded Confirmed Type acetaminophen 500 mg tablet 1,000 mg PO Q6H PRN Pain 02/15/22 02/15/22 History (Tylenol Extra Strength) allopurinol 100 mg tablet 100 mg PO BID 02/15/22 02/15/22 History aspirin 81 mg tablet,delayed 81 mg PO DAILY 02/15/22 02/15/22 History release atorvastatin 40 mg tablet 40 mg PO Q OTHER DAY 02/15/22 02/15/22 History cholecalciferol (vitamin D3) 25 25 mcg PO DAILY 02/15/22 02/15/22 History mcg (1,000 unit) capsule (Vitamin D3) diltiazem HCl 120 mg 120 mg PO DAILY 02/15/22 02/15/22 History capsule,extended release 24 hr (Cardizem CD) furosemide 20 mg tablet 20 mg PO DAILY 02/15/22 02/15/22 History hydrocodone 5 mg-acetaminophen 325 1 tab PO Q8H PRN Pain 02/15/22 02/15/22 History mg tablet metoprolol succinate 50 mg 50 mg PO DAILY 02/15/22 02/15/22 History tablet,extended release 24 hr multivitamin 1 tab PO DAILY 02/15/22 02/15/22 History omeprazole 20 mg capsule,delayed 20 mg PO DAILY 02/15/22 02/15/22 History release potassium chloride 10 mEq 10 meq PO DAILY 02/15/22 02/15/22 History tablet,extended release sennosides 8.6 mg capsule (senna) 8.6 mg PO DAILY PRN Constipation 02/15/22 02/15/22 History zinc gluconate 50 mg tablet 50 mg PO DAILY 02/15/22 02/15/22 History Patient History Medical History (Updated 02/16/22 @ 11:00 by Jose Mccracken MD) CAD (coronary atherosclerotic disease) GERD (gastroesophageal reflux disease) Gout Hypertension Leg edema Prostate cancer Surgical History H/O prostatectomy Hx of CABG Social History Smoking Status: Former smoker Hx Alcohol Use: No Hx Substance Use: No Preferred Language: Ghanaian Communication Ability: Effective Park Worker Required: No Beliefs That Will Affect Care: None Current Living Situation: Alone Other Information That Helps Us Care for You: No Feels Safe at Home: Yes Safety Concerns: Feels Safe At This Time Assistive Devices: Cane, Denture - Upper, Denture - Lower and Walker Review of Systems Review of Systems: Otherwise unremarkable. Patient walks with a cane. No recent trips or falls. Lives alone Physical Exam Physical Exam: Awake, alert, attentive. Pleasant and interactive. Speech and language there is noted. No visual or spatial neglect. Pupils are small but equal ocular movements full. No facial asymmetry. No pronator drift. Strength excellent throughout. Fine finger movements and finger-nose testing done well. He is able to stand and walk unassisted but is quite stooped and antalgic from back pain. Results & Data ([facility]) Vital Signs (Past 12 Hours) Vital Signs Pulse Resp BP Pulse Ox O2 Del Method 02/16/22 06:00 63 22 133/61 96 Room Air 02/16/22 05:30 69 21 02/16/22 05:00 62 18 02/16/22 01:48 64 22 145/59 H 96 Room Air 02/16/22 01:00 63 19 150/62 H 02/15/22 23:30 131/62 95 Room Air
--- NOTE | 2022-02-16 13:20 | XCELERA ---
[id number]
--- NOTE | 2022-02-16 14:03 | Pharmacy Report ---
- Date of Service February 16, 2022 - Pharmacy CVA/TIA Medication Review Medications to Prevent Stroke handout has been added to the patients discharge packet. Antiplatelet(s) * Aspirin 81 mg PO daily * Clopidogrel 75 mg PO daily * Continue both x 3 weeks then aspirin monotherapy for life. * Messaged provider regarding Omeprazole use at home and interaction with Plavix. Will need held or transitioned to pantoprazole upon d/c. Cholesterol * High intensity statin: atorvastatin 80 mg daily DVT Prophylaxis * Enoxaparin SQ Therapeutic Anticoagulation * No history of Afib/Aflutter noted Type 2 Diabetes * Patient does not have T2DM
--- NOTE | 2022-02-16 21:41 | Hospitalist Progress Note ---
Date of Service February 16, 2022 Assessment & Plan (1) Head ache: Plan: Mr. Esqueda is an 81 yo M with a remote history of migraine who was admitted for evaluation of headache with vision changes. - Non contrast Head CT normal. Head and Neck CTA normal. Brain MRI showing 5mm focus of diffusion restriction in right frontal lobe consistent with acute lacunar infarct, as well as signs of chronic microvascular ischemic disease. - Patient was administered high dose aspirin and a stroke work up was subsequently done - A1c at 5.9. Lipid showing total cholesterol of 149, LDL of 73, HDL of 36, ratio of 4.1. Echo showing no LV thrombus. - Patient never had any focal neuro deficits. - Neurology consulted, suggesting area noted on imaging may or may not be 2/2 ischemic stroke - and instead may represent gliosis of migraine disease, especially given patient's remote history of migraine. Furthermore, headache is not a common presenting feature of ischemic stroke - Furthermore, if patient has recurrent episodes with normal baseline in between, this would be further suggestive of migraine - Based on description of visual changes, may or may be consistent with migraine aura - Based on the headache description, it did not meet ICHD criteria for migraine -as it was not unilateral, throbbing in intensity, lasting for at least 4 hours in duration - however it possibly would have lasted longer if left untreated. It was worse with routine activity and was associated with photo and phono sensitivity. This does meet criteria for probable migraine. - Neuro ordered ESR/CRP, which were both mildly elevated, not to a high enough degree to be consistent with GSA - We will treat as if he had a stroke with Plavix and ASA 81mg daily for 21 days, followed by aspirin monotherapy thereafter; additional vascular risk factor optimization CAD (coronary atherosclerotic disease): - S/p CABG in 2017. Continue ASA as stated above Hypertension: - may resume home BP meds as symptoms started > 72 hours ago, outside of the window of permissive HTN benefit HLD: (hyperlipidemia): - increase Atorvastatin to 80mg PO daily Prediabetes - A1c at 5.9 -discuss lifestyle modification Gout: - Continue home Allopurinol GERD (gastroesophageal reflux disease): Protonix per hospital formulary Diet: Heart Healthy Code: Full Dvt ppx: Lovenox Dispo: Med/surg Admission and Anticipated Discharge Date Admission Date: February 16, 2022 Subjective Doing well. Reports a history of migraine many years ago. + family history of migraine (mother). These headaches would be severe, last hours in duration, were worse would routine activity, associated light and sound sensitivity. He stopped having them for a long time. However on 02/02/22 he got a bifrontal headache. It was moderate intensity - not as severe as previous migraines. It improved with Tylenol - would dissipate within 2-3 hours. There was associated visual changes - they started after the headpain did, lasted about 30 minutes. He says current headaches are worse with routine activity, they are not throbbing in intensity. There is light and sound sensitivity. He has woken up with a headache today - but he has not always woken up with them the past few days - they can start later in the day. They are not tied to exertion. He is headpain free at the time of the encounter Review of Systems Review of Systems: All systems reviewed & are unremarkable except as noted in HPI & below Physical Exam Constitutional: WD/WN, vitals as above Eyes: + anicteric sclerae ENMT: external ear and nose normal, oropharynx normal Neck: trachea midline, no thyromegaly Respiratory: normal respiratory effort, lungs clear to auscultation Cardiovascular: RRR, no murmur, no edema Skin: no rashes, warm and dry Neurologic: CN's II-XI intact bilaterally and moves all extremities Speech / Cognition: normal speech Motor/Sensory: no pronator drift and no sensory deficit Cranial Nerves: PERRL, normal accommodation, EOM intact bilaterally, normal facial strength, tongue midline, able to rotate head bilaterally, able to elevate shoulders bilaterally, no nystagmus and symmetric palate elevation Coordination: normal [id number]-ti-[id number] test and normal rapid alternating movements Psychiatric: A+Ox3, euthymic affect Results & Data Results & Data ([facility]) Vital Signs (Past 12 Hours) Vital Signs Temp Pulse Pulse Pulse Resp BP BP 02/16/22 17:31 36.8 C 73 73 18 135/7 L 02/16/22 16:30 75 21 02/16/22 16:30 133/72 02/16/22 16:00 83 22 02/16/22 15:30 74 20 02/16/22 15:30 126/65 02/16/22 15:00 81 22 02/16/22 15:00 149/72 H 02/16/22 14:30 81 18 02/16/22 14:00 81 24 02/16/22 14:00 147/71 H 02/16/22 13:30 78 25 H 02/16/22 13:30 147/65 H 02/16/22 13:00 86 31 H 02/16/22 12:30 73 21 02/16/22 12:30 144/69 H 02/16/22 12:00 79 25 H 02/16/22 12:00 150/67 H 02/16/22 11:30 77 20 02/16/22 11:30 160/70 H 02/16/22 11:00 71 17 02/16/22 11:00 169/67 H 02/16/22 10:58 75 24 02/16/22 10:58 154/84 H 02/16/22 10:57 76 23 02/16/22 09:30 64 21 02/16/22 09:00 61 12 02/16/22 08:30 58 L 13 02/16/22 08:00 61 7 L 02/16/22 07:30 68 25 H 02/16/22 07:01 95 H 37 H 02/16/22 13:54 37 C 80 79 18 147/65 H 02/16/22 10:58 36.7 C 72 71 19 154/84 H Pulse Ox O2 Del Method 02/16/22 17:31 95 Room Air 02/16/22 16:30 95 02/16/22 16:30 02/16/22 16:00 02/16/22 15:30 02/16/22 15:30 02/16/22 15:00 02/16/22 15:00 02/16/22 14:30 02/16/22 14:00 94 02/16/22 14:00 02/16/22 13:30 02/16/22 13:30 02/16/22 13:00 02/16/22 12:30 02/16/22 12:30 02/16/22 12:00 02/16/22 12:00 02/16/22 11:30 02/16/22 11:30 02/16/22 11:00 95 02/16/22 11:00 02/16/22 10:58 93 02/16/22 10:58 02/16/22 10:57 93 02/16/22 09:30 02/16/22 09:00 02/16/22 08:30 02/16/22 08:00 02/16/22 07:30 02/16/22 07:01 02/16/22 13:54 96 Room Air 02/16/22 10:58 95 Room Air PG Care Time/CCT Total # of Minutes Spent Total Time Spent with Patient: Total time spent is greater than 50% in coordination of care (as documented) at patient's floor/unit and/or counseling patient: Coding Level of Care Code 26871 Subseq Hosp Care Lvl 2 Diagnoses Head ache R51.9
[2022-02-17] MEDS: allopurinoL 100 MG TAB PO SCH ×2 (02:28→08:46)
[2022-02-17 07:41] LABS: Basophils # (auto) 0.03 K/uL (0-0.2); Basophils % (auto) 0.4 %; Eosinophils # (auto) 0.28 K/uL (0-0.50); Eosinophils % (auto) 3.6 %; Hematocrit (blood only) 40.5 % (40.1-51.0); Hemoglobin 13.5 g/dl (14.0-18.0); Immature Granulocytes # (auto) 0.02 K/uL (0.00-0.02); Immature Granulocytes % (auto) 0.3 %; Lymphocytes # (auto) 2.45 K/uL (1.2-3.4); Lymphocytes % (auto) 31.3 %; Mean Corpuscular Hemoglobin 30.3 pg (25.0-34.0); Mean Corpuscular Hgb Conc 33.3 g/dL (32.0-36.0); Mean Platelet Volume 8.7 fL (9.4-12.4); Monocytes # (auto) 0.56 K/uL (0.24-0.82); Monocytes % (auto) 7.1 %; Neutrophils % (auto) 57.3 %; Platelet Count 264 K/uL (130-400); RDW Coefficient of Variation 14.7 % (11.5-14.5); RDW Standard Deviation 49.3 fL (36.4-46.3); Red Blood Count 4.45 M/uL (4.63-6.08); White Blood Count 7.84 K/ul (4.8-10.8)
[2022-02-17 08:03] LABS: BUN Creatinine Ratio 21.2 (10-20); Calcium 8.9 mg/dl (8.5-10.1); Creatinine Clr Calc Pharmacy 55.3 ml/min; Est GFR (African American) 69.3 ml/min; Est GFR (Non-African American) 59.8 ml/min; Potassium 4.2 mmol/L (3.5-5.1)
[2022-02-17] MEDS: ATORVASTATIN 40 MG TAB PO SCH (08:44)
[2022-02-17] MEDS: CLOPIDOGREL BISULFATE 75 MG TAB PO SCH (08:44)
[2022-02-17] MEDS: PANTOprazole 40 MG TAB PO SCH (08:44)
[2022-02-17] MEDS: ASPIRIN 81 MG ECTAB PO SCH (08:46)
[2022-02-17] MEDS: ENOXAPARIN INJ 30 MG/0.3 ML SYR SQ SCH (08:47)
[2022-02-17] MEDS ORDERED: dilTIAZem HCL 120 MG CAPCR PO SCH (09:00)
[2022-02-17] MEDS ORDERED: METOPROLOL SUCC 50MG EXT REL TAB PO SCH (09:00)
[2022-02-17] MEDS ORDERED: STROKE PATIENT DISCHARGE STA (09:50)
--- NOTE | 2022-02-17 09:50 | Discharge Summary ---
Date of Service February 17, 2022 Admission HPI Per Admitting Provider Zechariah Esqueda is an 81yo male with PMHx significant for CAD (s/p CABG in 2017), HTN, HLD, GERD and gout who presented to [facility] ED on 02/16 for intermittent frontal headaches and visual changes for the last 3 days. Patient was evaluated in our ED on 02/12 for frontal headache, blurry vision with occasional double vision and confusion and was discharged after unremarkable labs and CT head w/o contrast. Headaches have occurred mostly in the mornings, and the visual changes occurred only twice in the last several days and resolved after several hours. On arrival to ED today patient was A+Ox4 and without headache, visual deficits, or strength/sensation deficits. Reports that he is asymptomatic and feels fine. Patient has a 90 pack year smoking history and quit in 1989. Denies alcohol use or drug use. Denies previous stroke. Takes Lasix daily for LE edema but denies h/o CHF. Has never taken blood thinner besides for Aspirin in the past. He is proficient in ADLs and nearly all iADLs - uses a cane for ambulation. In the ED the patient was afebrile and hemodynamically stable on room air. Labs unremarkable. COVID-19 negative. Brain MRI showed 5mm focus of diffusion restriction in right frontal lobe cons istent with acute lacunar infarct. Also showed signs of chronic microvascular ischemic disease. CT head and CTA head/neck unremarkable, apart from incidental finding of emphysema. In ED patient was given Aspirin 324mg. Admission Exam Per Admitting Provider Physical Exam: General: A&Ox3. NAD. Cooperative. HEENT: Atraumatic, normocephalic. Pulm: CTAB A&P. -wheezes, -rales, -rhonchi. Symmetrical chest rise. No increase work of breathing. No respiratory distress. Cardiac: RRR, -mrg. Radial pulses intact and symmetrical. No LE edema. Abdominal: soft, non-tender, non-distended, BS x 4 Skin: warm, dry, no rash Neurologic: patellar DTR's 2+ bilat, sensation intact and PERRL, EOMI, accommodation nl, no face palsy, no dysarthria normal touch/pain/proprioception, CN's II-XI intact bilaterally, deep tendon reflexes 2+ bilaterally, moves all extremities and awake; no focal motor deficits Speech / Cognition: normal speech Motor/Sensory: no tremor and no pronator drift Gait: no ataxic gait Coordination: normal [id number] test and normal lqpx-[id number] test Principal Diagnosis Headache Discharge Exam Constitutional WD/WN, vitals as above Eyes + anicteric sclerae ENMT external ear and nose normal, oropharynx normal Neck trachea midline, no thyromegaly Respiratory normal respiratory effort, lungs clear to auscultation Cardiovascular RRR, no murmur, no edema Musculoskeletal Head/Neck/Chest: normocephalic and head atraumatic Skin no rashes, warm and dry Neurologic CN's II-XI intact bilaterally and moves all extremities Speech / Cognition: normal speech Motor/Sensory: no pronator drift and no sensory deficit Cranial Nerves: PERRL, normal accommodation, EOM intact bilaterally, normal facial strength, tongue midline, able to rotate head bilaterally, able to elevate shoulders bilaterally, no nystagmus and symmetric palate elevation Coordination: normal [id number]-[id number]-[id number] test and normal rapid alternating movements Psychiatric A+Ox3, euthymic affect Discharge Data Allergies Allergy/AdvReac Type Severity Reaction Status Date / Time No Known Allergies Allergy Verified 02/15/22 21:07 Consultations 02/16/22 01:08 ED Decision to Admit Stat 02/16/22 04:05 Consult Neurology Routine Ordered Studies 02/15/22 12:56 CT angio head w con Stat CT angio neck with con Stat 02/15/22 13:11 CT head/brain wo con Stat 02/15/22 20:42 MRI Brain [MR brain wo con] Stat Hospital Course (1) Head ache: Mr. Esqueda is an 81 yo M with a remote history of migraine who was admitted for evaluation of headache with vision changes. - Non contrast Head CT normal. Head and Neck CTA normal. Brain MRI showing 5mm focus of diffusion restriction in right frontal lobe consistent with acute lacunar infarct, as well as signs of chronic microvascular ischemic disease. - Patient was administered high dose aspirin and a stroke work up was subsequently done - A1c at 5.9. Lipid showing total cholesterol of 149, LDL of 73, HDL of 36, ratio of 4.1. Echo showing no LV thrombus. - Neurology consulted, suggesting area noted on imaging may or may not be 2/2 ischemic stroke - and instead may represent gliosis of migraine disease, especially given patient's remote history of migraine. Furthermore, headache is not a common presenting feature of ischemic stroke and patient never had any focal neuro deficits. If patient has recurrent episodes with normal baseline in between, this would be further suggestive of migraine - Based on his description of visual changes, may or may be consistent with migraine aura - Based on the headache description, it did not meet ICHD criteria for migraine -as it was not unilateral, throbbing in quality, lasting for at least 4 hours in duration - however it possibly would have lasted longer if left untreated. It was worse with routine activity and was associated with photo and phono sensitivity. The headache did, however, meet criteria for probable migraine. - Neuro ordered ESR/CRP, which were both mildly elevated, not to a high enough degree to be consistent with GSA - We will treat as if he had a stroke with Plavix and ASA 81mg daily for 21 days, followed by aspirin monotherapy thereafter; additional vascular risk factor optimization (see below) CAD (coronary atherosclerotic disease): - S/p CABG in 2017. Continue ASA as stated above Hypertension: - may resume home BP meds as symptoms started > 72 hours ago, outside of the window of permissive HTN benefit HLD: (hyperlipidemia): - patient was only taking 40mg every OTHER day (due to myalgias). Encouraged him to try taking daily if able to tolerate Prediabetes - A1c at 5.9 -discuss lifestyle modification - A1c should be repeated in 3 moths Gout: - Continue home Allopurinol GERD (gastroesophageal reflux disease): - Protonix while on Plavix, can resume omeprazole after he finishes Plavix course Total Time Total Time Spent Total Time Spent (In Minutes): 40 minutes Discharge Plan Discharge Items Patient Disposition: Home - Self-Care Reason For Visit: CVA Discharge Diagnosis: Stroke Activity: Resume your previous activity Non-emergency contact: Primary Care Provider Call non-emergency contact if: you have any medication questions Follow-up/Referrals: Isauro Amanda MD [Primary Care Provider] - 02/22/22 9:00 am Diet: Heart Healthy Addtl Attending Provider Instructions: You were hospitalized at [facility] for headache with one instance of visual changes. A cat scan of the head showed no evidence of a brain bleed. A brain MRI was done which showed a possible, small right sided stroke. Neurology was consulted and upon their evaluation, felt the change noted on brain imaging may or may not have been consistent with a stroke and instead may be national sales representative of migraine related changes - this process is called "gliosis." Furthermore, your personal history of migraine, along with the description of your headache, makes a migraine as a cause of your recent symptoms certainly plausible. Ultimately, we recommend treating you as if this was a stroke -which entails taking BOTH a daily baby aspirin (81mg) and Plavix 75mg daily for the next 21 days. After the 21 days are over, you should remain on aspirin monotherapy. As a side note, for the 21 days you are on plavix, you cannot take omeprazole (which you use for acid reflux). I have sent in a script for an alternative stomach acid hiram, known as pantoprazole, for you to use in place of omeprazole during that 21 day period. Next, we would ideally optimize your both vascular risk factors. Please continue you home blood pressure medication regimen: metoprolol succinate 50mg daily along with diltiazem 120mg daily. For your cholesterol, you already take Lipitor 40mg every other day. Ideally, if you can tolerate it, we would like you taking it EVERYDAY. Finally, your hemoglobin A1c, a marker of diabetes, returned at 5.9. While this is not in the diabetic range, it is above normal. Ways to reduce this value would be to reduce your consumption of dietary carbohydrates (ie breads, pastas, baked goods, rice, potatoes, etc). This value can be rechecked by your primary care provider in 3 months. If you get headaches in the future, Tylenol should be taken. Please follow up with your primary care provider within 1 week of discharge. Pending Studies at Discharge: No Stand-Alone Forms: My [facility], Smoking Cessation Medications and DC Order Prescriptions: New clopidogrel 75 mg Tablet 75 mg PO QAM 21 Days Qty: 21 0RF pantoprazole 20 mg tablet,delayed release (DR/EC) 20 mg PO DAILY 21 Days Qty: 21 0RF Continued multivitamin Tablet 1 tab PO DAILY metoprolol succinate 50 mg tablet extended release 24 hr 50 mg PO DAILY hydrocodone-acetaminophen 5-325 mg tablet 1 tab PO Q8H PRN (Reason: Pain) potassium chloride 10 mEq tablet extended release 10 meq PO DAILY allopurinol 100 mg tablet 100 mg PO BID aspirin 81 mg Tablet,Delayed Release (Dr/Ec) 81 mg PO DAILY acetaminophen [Tylenol Extra Strength] 500 mg Tablet 1,000 mg PO Q6H PRN (Reason: Pain) omeprazole 20 mg capsule,delayed release(DR/EC) 20 mg PO DAILY diltiazem HCl [Cardizem CD] 120 mg Capsule,Extended Release 24hr 120 mg PO DAILY zinc gluconate 50 mg Tablet 50 mg PO DAILY furosemide 20 mg tablet 20 mg PO DAILY cholecalciferol (vitamin D3) [Vitamin D3] 25 mcg (1,000 unit) Capsule 25 mcg PO DAILY senna 8.6 mg Capsule 8.6 mg PO DAILY PRN (Reason: Constipation) Changed atorvastatin 40 mg tablet 40 mg PO DAILY 30 Days Qty: 30 0RF Discharge Orders: Discharge Order (Routine); Ordered 02/17/22 Ordered By: Annie Vega Admission Data Admit Date/Time: 02/16/22 02:14 Attending Provider: Annie Vega Admit Provider: Alin Mclaughlin Primary Care Provider: Isauro Amanda Other Providers: Anastacio Petersen ; Jose Mccracken Other Interventions: Discharge Summary Assessment (RN) Last Done: 02/17/22 10:14 Coding Level of Care Code 29902 OBS Care - Discharge Diagnoses Head ache R51.9
[2022-02-17 12:43] LABS: C-Reactive Protein High Sens. 8.3 mg/L
--- NOTE | 2022-02-20 11:34 | Pharmacy Report ---
Pharmacist Stroke Counseling - Date of Service February 20, 2022 - Scope: Pharmacy has been consulted to provide medication discharge counseling for this patient admitted with possible ischemic stroke as per the Pharmacist Discharge Counseling for Stroke Patients Protocol. - Medications on Discharge: Home Medications Medication Instructions Recorded Confirmed acetaminophen 500 mg tablet 1,000 mg PO Q6H PRN Pain 02/15/22 02/15/22 (Tylenol Extra Strength) allopurinol 100 mg tablet 100 mg PO BID 02/15/22 02/15/22 aspirin 81 mg tablet,delayed 81 mg PO DAILY 02/15/22 02/15/22 release cholecalciferol (vitamin D3) 25 25 mcg PO DAILY 02/15/22 02/15/22 mcg (1,000 unit) capsule (Vitamin D3) diltiazem HCl 120 mg 120 mg PO DAILY 02/15/22 02/15/22 capsule,extended release 24 hr (Cardizem CD) furosemide 20 mg tablet 20 mg PO DAILY 02/15/22 02/15/22 hydrocodone 5 mg-acetaminophen 325 1 tab PO Q8H PRN Pain 02/15/22 02/15/22 mg tablet metoprolol succinate 50 mg 50 mg PO DAILY 02/15/22 02/15/22 tablet,extended release 24 hr multivitamin 1 tab PO DAILY 02/15/22 02/15/22 omeprazole 20 mg capsule,delayed 20 mg PO DAILY 02/15/22 02/15/22 release potassium chloride 10 mEq 10 meq PO DAILY 02/15/22 02/15/22 tablet,extended release sennosides 8.6 mg capsule (senna) 8.6 mg PO DAILY PRN Constipation 02/15/22 02/15/22 zinc gluconate 50 mg tablet 50 mg PO DAILY 02/15/22 02/15/22 New Rx's Medication Instructions Recorded atorvastatin 40 mg tablet 40 mg PO DAILY 30 days #30 tabs 02/17/22 clopidogrel 75 mg tablet 75 mg PO QAM 21 days #21 tabs 02/17/22 pantoprazole 20 mg tablet,delayed 20 mg PO DAILY 21 days #21 tabs 02/17/22 release - Action: The above medications, specifically ones for stroke treatment/prophylaxis, have been reviewed in detail with the patient and/or patient sales representative aircraft(s) prior to discharge. This includes indication, common adverse reactions, drug interactions, and medication administration. Medication counseling has been employed using the teach-back method to ensure understanding. - Outcome: The patient and/or patient sales representative aircraft(s) have demonstrated understanding of the medications. Additional comments: Called and spoke with patient regarding medication changes made at hospital. He reports he has picked up the prescriptions and is having no problems with these. Did discuss if taking atorvastatin daily had caused any muscle soreness (per notes taking every other day d/t myalgia). He reports no problems taking daily currently. His headache has been resolved since leaving the hospital. Also discussed plavix x 21 days and change from omeprazole to pantoprazole. He states he is going to be talking to his primary care doctor re: need for the PPI after (does have have GERD listed in problem list) as he reports no issues with reflux/ uncertain if needed. Encouraged follow up with his primary care physician- he is seeing him Sunday, he is located in [place], [place]. Per patient daughter is an RN. Patient had no further questions and states he is doing well. Thank you for allowing pharmacy to be involved in the care of this patient. Please call [phone] with any additional questions
== END 2022-02-17 11:53 | disposition home or self-care (01) | DRG 66 ==
LOC: ED 12:39 → SUATTDRO 02-16 02:14 → EDINP 02-16 02:14 → 2N 02-16 04:04

== ENCOUNTER 2024-05-01 14:16 | Inpatient (IN) ==
--- NOTE | 2024-05-01 15:31 | Emergency Department Note ---
Impression & Plan Diarrhea, JESIKA (acute kidney injury) ED Provider Note Diagnosis: Diarrhea, acute kidney injury Disposition: Admission CHIEF COMPLAINT: Diarrhea HPI: Patient is an 83-year-old male presenting with diarrhea. Patient reportedly has been having symptoms since January. Patient was recently admitted to outside hospital for 4 days time for dehydration and diarrhea. Patient did not have any specific diagnosis made at that time. Patient's imaging studies and cultures were negative. Patient followed up with GI 2 days prior and they have outpatient testing ordered. Patient is not only ate once in the past 4 days time. Patient had 15 episodes of diarrhea without blood present in it last evening into today. Patient had no recent travel no recent antibiotics. Patient has had prior colonoscopies without issue. Patient is unable to eat and vomits when he tries to eat anything currently. Patient having generalized weakness and no energy at this time. Patient denies any active chest pain or shortness of breath. PAST MEDICAL HISTORY: See Below PAST SURGICAL HISTORY: See Below SOCIAL HISTORY: See Below HOME MEDICATIONS: See Below ALLERGIES: See Below VITALS: See Below PHYSICAL EXAMINATION: GENERAL: non-toxic. EYE EXAM: Normal conjunctiva. OROPHARYNX: Moist mucus membranes. Grossly normal dentition. NECK: Supple, LUNGS: Clear to auscultation. Normal chest wall mechanics. HEART: NSR ABDOMEN: Abdomen soft, non-tender, BACK: No CVA TTP. SKIN: No rashes and no bruising. UPPER EXTREMITIES: Upper extremities are grossly normal LOWER EXTREMITIES: Grossly normal, no edema. NEURO EXAM: A&O x3,, normal speech, moves all 4 extremities PSYCH: Cooperative MEDICAL DECISION MAKING: History obtained from: Patient, daughter ER Course: Patient is a 83-year-old male presenting with significant episodes of diarrhea at home over the past 24 hours time. Patient reportedly went over 15 times. Patient is not been able to eat since Sunday. Patient was trying to perform outpatient GI follow-up but now that he is unable to tolerate p.o. oral liquids came back in for further evaluation. Patient was recently admitted to [facility]. Patient today had CT scan of abdomen pelvis performed which shows no new acute pathology. Patient found to have a leukocytosis. Patient's stool cultures pending. Patient found to have an acute kidney injury and given IV fluid hydration. Patient will be admitted to hospital service. Labs (independently interpreted) are significant for: Leukocytosis, JESIKA Medications given: Consultants: Hospitalist Triage Nursing notes reviewed and agree them. Vital Signs: reviewed and remarkable for: no significant abnormalities Past Med/Surg History Problem List (Updated 05/01/24 @ 20:20 by Je Golden DO) JESIKA (acute kidney injury) (Acute) Diarrhea (Acute) Head ache Acute lacunar stroke (Acute) GERD (gastroesophageal reflux disease) Gout Leg edema HLD (hyperlipidemia) Hypertension CAD (coronary atherosclerotic disease) Medical History (Updated 05/01/24 @ 20:20 by Je Golden DO) Lacunar infarct, acute Prostate cancer Surgical History H/O prostatectomy Hx of CABG Social History Smoking Status: Former smoker Tobacco Type: Cigarettes Hx Alcohol Use: No Hx Substance Use: No Preferred Language: Palauan Communication Ability: Effective Sponge Packer Required: No Beliefs That Will Affect Care: None Current Living Situation: Alone Feels Safe at Home: Yes Assistive Devices: Cane, Denture - Upper, Denture - Lower and Walker Allergies Allergies Allergy/AdvReac Type Severity Reaction Status Date / Time No Known Allergies Allergy Verified 05/01/24 20:08 Home Meds Home Medications Medication Instructions Recorded Confirmed acetaminophen 500 mg tablet 1,000 mg PO Q6H PRN Pain 02/15/22 05/01/24 (Tylenol Extra Strength) allopurinol 100 mg tablet 100 mg PO BID 02/15/22 05/01/24 aspirin 81 mg tablet,delayed 81 mg PO DAILY 02/15/22 02/15/22 release cholecalciferol (vitamin D3) 25 25 mcg PO DAILY 02/15/22 02/15/22 mcg (1,000 unit) capsule (Vitamin D3) diltiazem HCl 120 mg 120 mg PO DAILY 02/15/22 05/01/24 capsule,extended release 24 hr (Cardizem CD) furosemide 20 mg tablet 20 mg PO DAILY 02/15/22 05/01/24 hydrocodone 5 mg-acetaminophen 325 1 tab PO Q8H PRN Pain 02/15/22 02/15/22 mg tablet metoprolol succinate 50 mg 50 mg PO DAILY 02/15/22 05/01/24 tablet,extended release 24 hr multivitamin 1 tab PO DAILY 02/15/22 02/15/22 omeprazole 20 mg capsule,delayed 20 mg PO DAILY 02/15/22 02/15/22 release potassium chloride 10 mEq 10 meq PO DAILY 02/15/22 05/01/24 tablet,extended release sennosides 8.6 mg capsule (senna) 8.6 mg PO DAILY PRN Constipation 02/15/22 02/15/22 zinc gluconate 50 mg tablet 50 mg PO DAILY 02/15/22 02/15/22 atorvastatin 40 mg tablet 40 mg PO QAM 05/01/24 05/01/24 ondansetron HCl 4 mg tablet 4 mg PO Q8H PRN Nausea And Vomiting 05/01/24 05/01/24 pantoprazole 40 mg tablet,delayed 40 mg PO BID 05/01/24 05/01/24 release sucralfate 1 gram tablet 1 g PO .AC/HS 05/01/24 05/01/24 Results & Data (ED) Vital Signs Vital Signs - 24 hr 05/01/24 14:28 05/01/24 16:00 05/01/24 16:15 Temperature 36.6 C Temperature Source Temporal Artery Scan Pulse Rate 83 71 67 Pulse Rate from SpO2 Sensor 71 Respiratory Rate 18 23 Respiratory Effort / Characteristics Non-Labored Spontaneous Respiratory Depth Normal Respiratory Pattern Regular Blood Pressure 135/66 106/46 L Blood Pressure Mean 89 71 Blood Pressure Position Sitting Pulse Oximetry 94 93 Oxygen Delivery Method Room Air Room Air Sepsis Recent Fever Within 48 Hours No Sepsis New/Unexplained Change in Mental Status N/A Sepsis Action Taken by Nursing No Action Required 05/01/24 17:00 05/01/24 18:00 05/01/24 18:30 Temperature Temperature Source Pulse Rate 72 71 73 Pulse Rate from SpO2 Sensor 71 72 72 Respiratory Rate 20 18 18 Respiratory Effort / Characteristics Respiratory Depth Respiratory Pattern Blood Pressure 115/54 L 108/55 L Blood Pressure Mean 74 72 Blood Pressure Position Pulse Oximetry 94 95 94 Oxygen Delivery Method Room Air Room Air Room Air Sepsis Recent Fever Within 48 Hours Sepsis New/Unexplained Change in Mental Status Sepsis Action Taken by Nursing 05/01/24 20:13 Temperature Temperature Source Pulse Rate 78 Pulse Rate from SpO2 Sensor Respiratory Rate Respiratory Effort / Characteristics Respiratory Depth Respiratory Pattern Blood Pressure Blood Pressure Mean Blood Pressure Position Pulse Oximetry Oxygen Delivery Method Sepsis Recent Fever Within 48 Hours Sepsis New/Unexplained Change in Mental Status Sepsis Action Taken by Nursing Laboratory Data 05/01/24 14:52 05/01/24 14:52 Lab Results 05/01/24 05/01/24 Range/Units 14:52 17:29 WBC 13.33 H (4.8-10.8) K/ul RBC 4.56 L (4.70-6.10) M/uL Hgb 14.0 (14.0-18.0) g/dl Hct 43.4 (42.0-52.0) % MCV 95.2 (80.0-100.0) fL MCH 30.7 (25.0-34.0) pg MCHC 32.3 (32.0-36.0) g/dL RDW Std Deviation 52.0 H (36.4-46.3) fL RDW Coeff of Marleen 14.8 H (11.5-14.5) % Plt Count 401 H (130-400) K/uL MPV 8.8 L (9.4-12.4) fL Immature Gran % (Auto) 0.5 % Neut % (Auto) 75.1 % Lymph % (Auto) 17.3 % [place] % (Auto) 6.2 % Eos % (Auto) 0.7 % Baso % (Auto) 0.2 % Neut # (Auto) 10.03 H (1.40-6.50) K/uL Lymph # (Auto) 2.30 (1.20-3.40) K/uL [place] # (Auto) 0.83 H (0.11-0.59) K/uL Eos # (Auto) 0.09 (0.00-0.50) K/uL Baso # (Auto) 0.02 (0.00-0.20) K/uL Immature Gran # (Auto) 0.06 (0.01-0.20) K/uL Sodium 136 (136-145) mmol/L Potassium 4.3 (3.5-5.1) mmol/L Chloride 104 (98-107) mmol/L Carbon Dioxide 26 (21-32) mmol/L Anion Gap 6 (3-11) BUN 29 H (6-23) mg/dl Creatinine 1.60 H (0.6-1.4) mg/dl Est Cr Clr Drug Dosing 35.7 ml/min eGFR 41.96 BUN/Creatinine Ratio 18.1 (10-20) Glucose 90 (70-99(Fasting)) mg/dl Calcium 10.0 (8.6-10.3) mg/dl Magnesium 1.8 (1.7-2.4) mg/dl Total Bilirubin 0.6 (0.2-1.0) mg/dl AST 18 (13-39) U/L ALT 16 (7-52) U/L Alkaline Phosphatase 126 H (34-104) U/L Total Protein 6.8 (6.0-8.3) gm/dl Albumin 4.2 (3.4-5.0) gm/dl Globulin 2.6 (2.5-4.0) gm/dl Albumin/Globulin Ratio 1.6 (0.9-2) Lipase 24 (11-82) U/L Stl C. cayetanensis PCR Not Detected (NotDetected) Stool Rotavirus A PCR Not Detected (NotDetected) Stl Adenov F 40/41 PCR Not Detected (NotDetected) Stool Astrovirus (PCR) Not Detected (NotDetected) Stool Campylobacter PCR Not Detected (NotDetected) Stl C. diff Tox B Gene Negative Cdiff Gene (Neg) Stool Cryptosporidium PCR Not Detected (NotDetected) Stl E.coli Shiga Tox PCR Not Detected (NotDetected) Stl Enterotoxigenic E PCR Not Detected (NotDetected) Stool EPEC (PCR) Not Detected (NotDetected) Stool EAEC (PCR) Not Detected (NotDetected) Stl E. histolytica PCR Not Detected (NotDetected) Stool Giardia Lamblia PCR Not Detected (NotDetected) Stool Salmonella PCR Not Detected (NotDetected) Stool Sapovirus (PCR) Not Detected (NotDetected) Stl P. shigelloides PCR Not Detected (NotDetected) Stl Shigella/EIEC PCR Not Detected (NotDetected) St Y.enterocolitica PCR Not Detected (NotDetected) Stool Vibrio (PCR) Not Detected (NotDetected) Stl Vibrio cholerae PCR Not Detected (NotDetected) Stl Norovirus GI/GII PCR Not Detected (NotDetected) Administered Medications Sodium Chloride (Nss) 1,000 mls @ 80 mls/hr IV .[id number] ANGELIC Stop: 03/14/25 19:44 Last Admin: 05/01/24 20:00 Dose: 80 mls/hr Documented By: CARIDAD Discontinued Medications Sodium Chloride (Nss) 1,000 mls @ 999 mls/hr IV .[id number] ONE Stop: 05/01/24 16:27 Last Infusion: 05/01/24 17:45 Dose: Infused Documented By: Admin: 05/01/24 15:44 Dose: 999 mls/hr Documented By: MIRTHA Ioversol (Optiray 320 100ml) 92 ml IV ONCE ONE Stop: 05/01/24 17:32 Last Admin: 05/01/24 17:31 Dose: 92 ml Documented By: PERLA Metoclopramide HCl (Metoclopramide Hcl Inj 5 Mg/Ml 2 Ml Vial) 10 mg IV NOW STA Stop: 05/01/24 15:28 Last Admin: 05/01/24 15:43 Dose: 10 mg Documented By: MIRTHA Imaging Data Radiologist's Impression: Abdomen/Pelvis CT 05/01/24 15:27 Clinical History: Diarrhea Technique: Axial computed tomography images were obtained of the abdomen and pelvis after the administration of intravenous contrast. No prior CT is available for comparison. Findings: The liver is overall of normal size, attenuation, and contour with no sign of cirrhosis or significant fatty infiltration. No liver mass lesion is seen. The portal vein is patent. The gallbladder appears unremarkable. No bile duct dilatation is noted. The spleen is of normal size. No focal splenic lesion is evident. The pancreas appears normal with no sign of acute or chronic pancreatitis and no mass lesion noted. The pancreatic duct is of normal caliber. The adrenal glands appear unremarkable. No definite renal or proximal ureteral calculi are seen on this contrast-enhanced study. There is no hydronephrosis or perinephric stranding. No renal mass lesion is identified. There are bilateral renal cortical and peripelvic cysts, measuring up to 4.3 cm. The aorta is of normal caliber. There is extensive multifocal atherosclerotic plaque. No abdominal adenopathy is seen. The stomach appears normal. There is no sign of small bowel obstruction. The colon appears unremarkable. The appendix appears normal also. No free intraperitoneal fluid or air is identified. No distal ureteral or bladder calculi are seen. No bladder mass lesion is evident. The iliac arteries are of normal caliber. There is an apparent severe stenosis of the left common iliac artery. No pelvic adenopathy is noted. The prostate appears to have been removed. There are left larger than right inguinal hernias containing only fat The lungs bases appear clear. There is an L5-S1 fusion. There is grade 2 anterolisthesis at L5-S1. There is a right hip replacement. There is lumbar scoliosis and degenerative disc disease. No fracture is identified. No focal osseous lesion is seen Impression: 1. Bilateral renal cysts 2. 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 Bilateral inguinal hernias containing only fat Electronically signed by Jim Gan 05-01-2024 5:50 PM Discharge Plan Visit Data Chief Complaint: Diarrhea Stated Complaint: CHRONIC DIARRHEA, NAUSEA ED Provider: Je Golden Discharge Problem: Diarrhea, JESIKA (acute kidney injury) Forms Stand Alone Forms: [facility] Prescriptions Prescriptions: No Action multivitamin Tablet 1 tab PO DAILY metoprolol succinate 50 mg tablet extended release 24 hr 50 mg PO DAILY hydrocodone-acetaminophen 5-325 mg tablet 1 tab PO Q8H PRN (Reason: Pain) potassium chloride 10 mEq tablet extended release 10 meq PO DAILY allopurinol 100 mg tablet 100 mg PO BID aspirin 81 mg Tablet,Delayed Release (Dr/Ec) 81 mg PO DAILY acetaminophen [Tylenol Extra Strength] 500 mg Tablet 1,000 mg PO Q6H PRN (Reason: Pain) omeprazole 20 mg capsule,delayed release(DR/EC) 20 mg PO DAILY diltiazem HCl [Cardizem CD] 120 mg Capsule,Extended Release 24hr 120 mg PO DAILY zinc gluconate 50 mg Tablet 50 mg PO DAILY furosemide 20 mg tablet 20 mg PO DAILY cholecalciferol (vitamin D3) [Vitamin D3] 25 mcg (1,000 unit) Capsule 25 mcg PO DAILY senna 8.6 mg Capsule 8.6 mg PO DAILY PRN (Reason: Constipation) ondansetron HCl 4 mg tablet 4 mg PO Q8H PRN (Reason: Nausea And Vomiting) pantoprazole 40 mg tablet,delayed release (DR/EC) 40 mg PO BID sucralfate 1 gram tablet 1 g PO .AC/HS atorvastatin 40 mg tablet 40 mg PO QAM Referrals Referrals: Isauro Amanda MD [Primary Care Provider] -
[2024-05-01] MEDS: METOCLOPRAMIDE HCL INJ 5 MG/ML 2 ML VIAL IV STA (15:43)
[2024-05-01] MEDS: SODIUM CHLORIDE 0.9% 1,000 ML IV ONE (15:44)
[2024-05-01 16:16] LABS: Basophils # (auto) 0.02 K/uL (0.00-0.20); Basophils % (auto) 0.2 %; Eosinophils # (auto) 0.09 K/uL (0.00-0.50); Eosinophils % (auto) 0.7 %; Hematocrit (blood only) 43.4 % (42.0-52.0); Immature Granulocytes # (auto) 0.06 K/uL (0.01-0.20); Immature Granulocytes % (auto) 0.5 %; Lymphocytes % (auto) 17.3 %; Mean Corpuscular Hemoglobin 30.7 pg (25.0-34.0); Mean Corpuscular Hgb Conc 32.3 g/dL (32.0-36.0); Mean Corpuscular Volume 95.2 fL (80.0-100.0); Mean Platelet Volume 8.8 fL (9.4-12.4); Monocytes # (auto) 0.83 K/uL (0.11-0.59); Monocytes % (auto) 6.2 %; Neutrophils # (auto) 10.03 K/uL (1.40-6.50); Neutrophils % (auto) 75.1 %; Platelet Count 401 K/uL (130-400); RDW Coefficient of Variation 14.8 % (11.5-14.5); Red Blood Count 4.56 M/uL (4.70-6.10); White Blood Count 13.33 K/ul (4.8-10.8)
[2024-05-01 16:26] LABS: Albumin Globulin Ratio 1.6 (0.9-2); Albumin Level 4.2 gm/dl (3.4-5.0); BUN Creatinine Ratio 18.1 (10-20); Bilirubin,Total 0.6 mg/dl (0.2-1.0); Creatinine Clr Calc Pharmacy 35.7 ml/min; Globulin 2.6 gm/dl (2.5-4.0); Magnesium 1.8 mg/dl (1.7-2.4); Potassium 4.3 mmol/L (3.5-5.1); Total Protein 6.8 gm/dl (6.0-8.3)
[2024-05-01] MEDS: OPTIRAY 320 100ml IV ONE (17:31)
--- NOTE | 2024-05-01 17:51 | CT Scan Report ---
Clinical History: Diarrhea Technique: Axial computed tomography images were obtained of the abdomen and pelvis after the administration of intravenous contrast. No prior CT is available for comparison. Findings: The liver is overall of normal size, attenuation, and contour with no sign of cirrhosis or significant fatty infiltration. No liver mass lesion is seen. The portal vein is patent. The gallbladder appears unremarkable. No bile duct dilatation is noted. The spleen is of normal size. No focal splenic lesion is evident. The pancreas appears normal with no sign of acute or chronic pancreatitis and no mass lesion noted. The pancreatic duct is of normal caliber. The adrenal glands appear unremarkable. No definite renal or proximal ureteral calculi are seen on this contrast-enhanced study. There is no hydronephrosis or perinephric stranding. No renal mass lesion is identified. There are bilateral renal cortical and peripelvic cysts, measuring up to 4.3 cm. The aorta is of normal caliber. There is extensive multifocal atherosclerotic plaque. No abdominal adenopathy is seen. The stomach appears normal. There is no sign of small bowel obstruction. The colon appears unremarkable. The appendix appears normal also. No free intraperitoneal fluid or air is identified. No distal ureteral or bladder calculi are seen. No bladder mass lesion is evident. The iliac arteries are of normal caliber. There is an apparent severe stenosis of the left common iliac artery. No pelvic adenopathy is noted. The prostate appears to have been removed. There are left larger than right inguinal hernias containing only fat The lungs bases appear clear. There is an L5-S1 fusion. There is grade 2 anterolisthesis at L5-S1. There is a right hip replacement. There is lumbar scoliosis and degenerative disc disease. No fracture is identified. No focal osseous lesion is seen Impression: 1. Bilateral renal cysts 2. 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 Bilateral inguinal hernias containing only fat Electronically signed by Jim Gan 05-01-2024 5:50 PM
[2024-05-01] MEDS ORDERED: ACETAMINOPHEN 325 MG TAB PO PRN (19:26)
[2024-05-01 19:43] LABS: Adenovirus F 40/41 PCR Not Detected (NotDetected); Astrovirus PCR Not Detected (NotDetected); Campylobacter PCR Not Detected (NotDetected); Cryptosporidium PCR Not Detected (NotDetected); Cyclospora cayetanensis PCR Not Detected (NotDetected); Entamoeba histolytica PCR Not Detected (NotDetected); Enteroaggregative E.coli(EAEC) Not Detected (NotDetected); Enteropathogenic E.coli (EPEC) Not Detected (NotDetected); Enterotoxigenic E.coli (ETEC) Not Detected (NotDetected); Giardia lamblia PCR Not Detected (NotDetected); Norovirus GI/GII PCR Not Detected (NotDetected); Plesiomonas shigelloides PCR Not Detected (NotDetected); Rotavirus A PCR Not Detected (NotDetected); Salmonella PCR Not Detected (NotDetected); Sapovirus PCR Not Detected (NotDetected); Shiga-like Toxin E.coli (STEC) Not Detected (NotDetected); Shigella/Enteroinvasive E.coli Not Detected (NotDetected); Vibrio cholerae PCR Not Detected (NotDetected); Vibrio species PCR Not Detected (NotDetected); Yersinia enterocolitica PCR Not Detected (NotDetected)
--- NOTE | 2024-05-01 19:44 | History & Physical Report ---
Date of Service May 01, 2024 Assessment & Plan (1) Diarrhea: Plan: Assessment: 1. Diarrhea which appears to be subacute and approaching chronic. But worse over the last 2 weeks. 15 watery stools in the last 24 hours. 1 watery stool in the ER consisting of 600 cc volume. BioFire for stools has been sent to the lab and is pending at the time of this dictation. The patient has not had antibiotic exposure with no sick contacts. N.p.o. after midnight. Clear liquids until midnight. GI has been consulted and entertaining a probable EGD for the a.m. 2. History of Funk's esophagus. Protonix twice daily for now. 3. Acute kidney injury. Creatinine 1.6. Baseline is 1.1. Saline overnight reassess creatinine in the morning. 4. Coronary artery disease. Status post CABG many years ago. No recent chest symptoms whatsoever. 5. History of hypertension. Continue home medication once reconciliation completed. 6. Dyslipidemia. Continue home statin therapy. 7. History of hyperuricemia with gout. No evidence of acute exacerbation. 8. Mild leukocytosis 13.3. Will compared to records from last week from [facility] once available. Probably reactive. Monitor repeat in the a.m. Plan: As described above. Please refer to orders for further planning. History of Present Illness Chief Complaint: Diarrhea Primary Care Provider: Isauro Amanda MD This is a pleasant 83-year-old male whose had ongoing intermittent diarrhea since January 2024. Over the last 2 weeks it has been more voluminous and frequent. Patient was recently hospitalized at [facility] for 4 days this was last week. He was hydrated and discharged to follow-up with outpatient GI which she saw yesterday in the office. 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 Over the last 24 hours the patient has had 15 episodes of voluminous watery diarrhea. He had 1 episode in the ER which was approximately 600 cc. It has been sent for stool bio fire which is pending at the time of this dictation. Laboratory studies reflected acute kidney injury with a creatinine of 1.6 with a baseline of approximately 1.1. The patient's course in emergency department he received a dose of IV Reglan and a liter of normal saline. CT of the abdomen pelvis was nonacute demonstrated bilateral inguinal hernias, atherosclerosis specifically of the left common iliac. With bilateral renal cyst. We are admitting the patient. We have consulted GI for EGD in the a.m. Our initial plan was to place patient on clear liquids with n.p.o. after midnight, however while in the emergency department verbal order was received that he could have a regular diet and he ate spareribs with chicken and rice. Therefore we will now place the patient on clear liquids and n.p.o. after midnight for probable EGD in the morning with GI again whom I already communicated with this evening. Allergies Allergy/AdvReac Type Severity Reaction Status Date / Time No Known Allergies Allergy Verified 02/15/22 21:07 Home Medications Medication Instructions Recorded Confirmed Type acetaminophen 500 mg tablet 1,000 mg PO Q6H PRN Pain 02/15/22 02/15/22 History (Tylenol Extra Strength) allopurinol 100 mg tablet 100 mg PO BID 02/15/22 02/15/22 History aspirin 81 mg tablet,delayed 81 mg PO DAILY 02/15/22 02/15/22 History release cholecalciferol (vitamin D3) 25 25 mcg PO DAILY 02/15/22 02/15/22 History mcg (1,000 unit) capsule (Vitamin D3) diltiazem HCl 120 mg 120 mg PO DAILY 02/15/22 02/15/22 History capsule,extended release 24 hr (Cardizem CD) furosemide 20 mg tablet 20 mg PO DAILY 02/15/22 02/15/22 History hydrocodone 5 mg-acetaminophen 325 1 tab PO Q8H PRN Pain 02/15/22 02/15/22 History mg tablet metoprolol succinate 50 mg 50 mg PO DAILY 02/15/22 02/15/22 History tablet,extended release 24 hr multivitamin 1 tab PO DAILY 02/15/22 02/15/22 History omeprazole 20 mg capsule,delayed 20 mg PO DAILY 02/15/22 02/15/22 History release potassium chloride 10 mEq 10 meq PO DAILY 02/15/22 02/15/22 History tablet,extended release sennosides 8.6 mg capsule (senna) 8.6 mg PO DAILY PRN Constipation 02/15/22 02/15/22 History zinc gluconate 50 mg tablet 50 mg PO DAILY 02/15/22 02/15/22 History atorvastatin 40 mg tablet 40 mg PO DAILY 30 days #30 tabs 02/17/22 02/15/22 Rx Past Med/Surg History Problem List (Updated 05/01/24 @ 19:40 by Zechariah Romano, PhD, DO) Diarrhea Head ache Acute lacunar stroke (Acute) GERD (gastroesophageal reflux disease) Gout Leg edema HLD (hyperlipidemia) Hypertension CAD (coronary atherosclerotic disease) Medical History (Updated 05/01/24 @ 19:40 by Zechariah Romano, PhD, DO) Lacunar infarct, acute Prostate cancer Surgical History H/O prostatectomy Hx of CABG Social History Smoking Status: Former smoker Tobacco Type: Cigarettes Hx Alcohol Use: No Hx Substance Use: No Preferred Language: Romanian Communication Ability: Effective Security Systems Administrator Required: No Beliefs That Will Affect Care: None Current Living Situation: Alone Feels Safe at Home: Yes Assistive Devices: Cane, Denture - Upper, Denture - Lower and Walker Review of Systems Review of Systems: A 10 point review of system was obtained and unless otherwise stated here or in history of present illness are negative and noncontributory to chief complaint. Physical Exam Physical Exam: In General: In general 83-year-old male was alert and oriented x 3 at the time my exam. He has no symptoms at this time whatsoever accompanied by his daughter and his son-in-law at the time of my exam. His daughter is his power of automobile insurance claim examiner and again is a registered nurse and a very good historian. HEENT: Normocephalic atraumatic pupils are equal round and reactive to light bilaterally. No scleral icterus no conjunctival injection external auditory canals are patent septum is in the midline nose is without discharge oral mucosa is pink and moist without lesion. NECK: Supple no rigidity no lymphadenopathy no thyromegaly no carotid bruits no JVD no masses. HEART: Regular rate and rhythm I do not appreciate any ectopy or rub. No murm ur. LUNGS: Clear to auscultation bilaterally and anteriorly with no evidence of adventitious sounds/wheezes rales or rhonchi. ABDOMEN: Soft nontender, no rebound, no peritoneal signs, positive bowel sounds, no appreciable organomegaly. EXTREMITIES: Intact, no peripheral cyanosis, clubbing or edema. Strength is adequate x 4. He typically ambulates with a rollator due to his spinal stenosis and low back pain NEUROLOGICAL: Cranial nerves II through XII are grossly intact with no focal deficit elicited upon examination. Results & Data Results & Data Vital Signs (Past 12 Hours) Vital Signs Temp Pulse Resp BP Pulse Ox O2 Del Method 05/01/24 18:30 73 18 94 Room Air 05/01/24 18:00 71 18 108/55 L 95 Room Air 05/01/24 17:00 72 20 115/54 L 94 Room Air 05/01/24 16:15 67 05/01/24 16:00 71 23 106/46 L 93 Room Air 05/01/24 14:28 36.6 C 83 18 135/66 94 Room Air Code Status & VTE Plan Code Status Full code. I personally discussed with patient at bedside. VTE Prophylaxis Plan VTE Prophylaxis will be ordered: Yes PG Care Time/CCT Total # of Minutes Spent Total Time Spent with Patient: Total time spent is greater than 50% in coordination of care (as documented) at patient's floor/unit and/or counseling patient: Coding Level of Care Code 91988 INT INP/OBS CARE 3/75MIN Diagnoses Diarrhea R19.7
[2024-05-01] MEDS: SODIUM CHLORIDE 0.9% 1,000 ML IV SCH (20:00)
[2024-05-01] MEDS: PANTOprazole 40 MG/10 ML SYR IV SCH (21:12)
[2024-05-02 08:01] LABS: Basophils # (auto) 0.02 K/uL (0.00-0.20); Basophils % (auto) 0.2 %; Eosinophils # (auto) 0.17 K/uL (0.00-0.50); Eosinophils % (auto) 1.8 %; Hematocrit (blood only) 33.9 % (42.0-52.0); Hemoglobin 11.3 g/dl (14.0-18.0); Immature Granulocytes # (auto) 0.04 K/uL (0.01-0.20); Immature Granulocytes % (auto) 0.4 %; Mean Corpuscular Hemoglobin 31.4 pg (25.0-34.0); Mean Corpuscular Hgb Conc 33.3 g/dL (32.0-36.0); Mean Corpuscular Volume 94.2 fL (80.0-100.0); Monocytes # (auto) 0.85 K/uL (0.11-0.59); Monocytes % (auto) 8.9 %; Neutrophils # (auto) 6.38 K/uL (1.40-6.50); Neutrophils % (auto) 66.7 %; Platelet Count 301 K/uL (130-400); RDW Coefficient of Variation 14.8 % (11.5-14.5); RDW Standard Deviation 51.8 fL (36.4-46.3); White Blood Count 9.56 K/ul (4.8-10.8)
[2024-05-02 08:22] LABS: Albumin Level 3.6 gm/dl (3.4-5.0); BUN Creatinine Ratio 17.2 (10-20); Bilirubin,Total 0.4 mg/dl (0.2-1.0); Calcium 8.5 mg/dl (8.6-10.3); Chol HDL Ratio 3.7 (0-5); Creatinine Clr Calc Pharmacy 42.9 ml/min; Globulin 1.8 gm/dl (2.5-4.0); Magnesium 1.7 mg/dl (1.7-2.4); Potassium 3.9 mmol/L (3.5-5.1); Total Protein 5.4 gm/dl (6.0-8.3)
[2024-05-02 08:36] LABS: Thyroid Stimulating Hormone 4.433 uIu/ml (0.300-4.500)
[2024-05-02] MEDS: allopurinoL 100 MG TAB PO SCH (08:45)
[2024-05-02] MEDS: METOPROLOL SUCC 50MG EXT REL TAB PO SCH (08:45)
[2024-05-02] MEDS: dilTIAZem HCL 120 MG CAPCR PO SCH (08:46)
[2024-05-02] MEDS: ATORVASTATIN 40 MG TAB PO SCH (08:46)
[2024-05-02 09:17] LABS: Appearance Urine Clear (Clear); Bacteria Urine Automated None Seen (None Seen); Bilirubin Urine Negative (Negative); Blood Urine Negative (Negative); Cast Urine Automated 0-2 /lpf (0-2); Color Urine Yellow; Epithelial Cell Urine Auto 0-2 /hpf (0-2); Glucose Urine UA Negative (Negative); Ketones Urine Negative (Negative); Leukocyte Esterase Urine Negative (Negative); Nitrite Urine Negative (Negative); Protein Urine Trace (Negative); RBC Urine Automated 0-2 /hpf (0-2); Specific Gravity Urine 1.017 (1.000-1.030); Urobilinogen Urine Negative (Negative); WBC Urine Automated 0-5 /hpf (0-5); pH Urine 5.5 (4.5-7.5)
--- NOTE | 2024-05-02 09:59 | Gastrointestinal Consultation ---
Date of Consultation May 02, 2024 Assessment & Plan (1) Diarrhea: 83 year old male with history of hyperlipidemia, CAD s/p CABG in 2017, Funk's, GERD, HTN and others below who is admitted w/ diarrhea which has been persistent since a suspected viral illness in January. He notes associated decreased appetite, nausea and weight loss. CTAP w/o acute findings Maintain NPO status. Plan for EGD w/ flex sig this AM. Please prep w/ tap water enema x 2. 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 We appreciate assistance in the management of any serological abnormality and corrections to include: hemoglobin >7, INR <2, platelets >50,000, potassium levels >3.5 but <5.3, and sodium levels within 5 points of the reference range prior to endoscopic evaluation. Thank you for allowing us to participate in the care of this patient. Please call with any acute changes, questions or concerns. Please see addendum below with additional recommendation from my supervising physician. I spent a total of 60 minutes on the date of service in review of patient's record, and previously obtained information in person and appropriate medical visit, discussion and education of plan, with patient and/or caregiver, placing orders for tests/referral/procedures as medically necessary and documentation of pertinent clinical information in patient's medical records for their visit today. Supervising Physician Co-Signing Physician Notes I personally saw and examined the patient. I have reviewed the chart and agree with the documentation provided by the [employer] [facility] including discussion about the assessment, treatment and plan. Briefly, 83 year old male with history of hyperlipidemia, CAD s/p CABG in 2017, Funk's, GERD, HTN and others below who is admitted w/ diarrhea which has been persistent since a suspected viral illness in January. He notes associated decreased appetite, nausea and weight loss. CTAP w/o acute findings Maintain NPO status. Plan for EGD w/ flex sig this AM. Please prep w/ tap water enema x 2. 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 Will see if there is any findings on the EGD and flex sig. Will do random biopsies for microscopic colitis in the left colon. If there is no IBD present, would suggest cholestyramine 4 g twice daily to help with his diarrhea. Cultures so far negative. History of Present Illness Reason for Consultation: EGD Requesting Physician: Richie Soto MD Attending Physician: Richie Soto MD History of Present Illness 83 year old male with history of hyperlipidemia, CAD s/p CABG in 2017, Funk's,GERD, HTN and others below who is admitted w/ diarrhea. Pt was seen and evaluated, chart reviewed. Suggests he had suspected GI illness in January. Never fully improved. Has had issued w/ dietary advancement, nausea and diarrhea. Somedays has 15+ loose movements a day. No black or bloody stools. Has had weight loss with his symptoms, suggests about 15/20 lbs. 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 Bilateral inguinal hernias containing only fat Allergies Allergy/AdvReac Type Severity Reaction Status Date / Time No Known Allergies Allergy Verified 05/02/24 14:11 Home Medications Medication Instructions Recorded Confirmed Type acetaminophen 500 mg tablet 1,000 mg PO Q6H PRN Pain 02/15/22 05/01/24 History (Tylenol Extra Strength) allopurinol 100 mg tablet 100 mg PO BID 02/15/22 05/01/24 History aspirin 81 mg tablet,delayed 81 mg PO DAILY 02/15/22 02/15/22 History release diltiazem HCl 120 mg 120 mg PO DAILY 02/15/22 05/01/24 History capsule,extended release 24 hr (Cardizem CD) furosemide 20 mg tablet 20 mg PO DAILY 02/15/22 05/01/24 History metoprolol succinate 50 mg 50 mg PO DAILY 02/15/22 05/01/24 History tablet,extended release 24 hr multivitamin 1 tab PO DAILY 02/15/22 05/01/24 History omeprazole 20 mg capsule,delayed 20 mg PO DAILY 02/15/22 05/01/24 History release potassium chloride 10 mEq 10 meq PO DAILY 02/15/22 05/01/24 History tablet,extended release sennosides 8.6 mg capsule (senna) 8.6 mg PO DAILY PRN Constipation 02/15/22 05/01/24 History atorvastatin 40 mg tablet 40 mg PO QAM 05/01/24 05/01/24 History hydrocodone 5 mg-acetaminophen 325 1 tab PO TID PRN Pain 05/01/24 05/01/24 History mg tablet ondansetron HCl 4 mg tablet 4 mg PO Q8H PRN Nausea And Vomiting 05/01/24 05/01/24 History pantoprazole 40 mg tablet,delayed 40 mg PO BID 05/01/24 05/01/24 History release sucralfate 1 gram tablet 1 g PO .AC/HS 05/01/24 05/01/24 History Patient History Medical History (Updated 05/01/24 @ 20:20 by Je Golden DO) Lacunar infarct, acute Prostate cancer Surgical History H/O prostatectomy Hx of CABG Social History Smoking Status: Former smoker Tobacco Type: Cigarettes Second Hand Exposure: No; Do You Dip or Chew Tobacco: No; Hx Alcohol Use: No Hx Substance Use: No Preferred Language: Malaysian Communication Ability: Effective Technology Solutions Architect Required: No Beliefs That Will Affect Care: None Current Living Situation: Alone Feels Safe at Home: Yes Assistive Devices: Cane and Walker Review of Systems Review of Systems: All other findings negative except as noted in HPI. Physical Exam Constitutional: WD/WN, vitals as above Respiratory: normal respiratory effort, lungs clear to auscultation Cardiovascular: Rate/Rhythm: regular rate and regular rhythm Gastrointestinal (Abdomen): normal bowel sounds, soft, nontender, no hepatosplenomegaly Skin: no rashes, warm and dry Results & Data Vital Signs (Past 12 Hours) Vital Signs Temp Pulse Resp BP Pulse Ox O2 Del Method 05/02/24 07:45 97.9 F 63 16 116/60 94 Room Air 05/01/24 22:05 97.7 F 73 18 144/63 H 95 Room Air 05/01/24 22:05 97.7 F 73 18 144/63 H 95 Room Air Laboratory Results 05/02/24 05/02/24 05/01/24 Range/Units 09:00 07:24 17:29 WBC 9.56 (4.8-10.8) K/ul RBC 3.60 L (4.70-6.10) M/uL Hgb 11.3 L (14.0-18.0) g/dl Hct 33.9 L (42.0-52.0) % MCV 94.2 (80.0-100.0) fL MCH 31.4 (25.0-34.0) pg MCHC 33.3 (32.0-36.0) g/dL RDW Std Deviation 51.8 H (36.4-46.3) fL RDW Coeff of Marleen 14.8 H (11.5-14.5) % Plt Count 301 (130-400) K/uL MPV 9.0 L (9.4-12.4) fL Immature Gran % (Auto) 0.4 % Neut % (Auto) 66.7 % Lymph % (Auto) 22.0 % [place] % (Auto) 8.9 % Eos % (Auto) 1.8 % Baso % (Auto) 0.2 % Neut # (Auto) 6.38 (1.40-6.50) K/uL Lymph # (Auto) 2.10 (1.20-3.40) K/uL [place] # (Auto) 0.85 H (0.11-0.59) K/uL Eos # (Auto) 0.17 (0.00-0.50) K/uL Baso # (Auto) 0.02 (0.00-0.20) K/uL Immature Gran # (Auto) 0.04 (0.01-0.20) K/uL Sodium 139 (136-145) mmol/L Potassium 3.9 (3.5-5.1) mmol/L Chloride 107 (98-107) mmol/L Carbon Dioxide 27 (21-32) mmol/L Anion Gap 5 (3-11) BUN 23 (6-23) mg/dl Creatinine 1.34 (0.6-1.4) mg/dl Est Cr Clr Drug Dosing 42.9 ml/min eGFR 51.91 BUN/Creatinine Ratio 17.2 (10-20) Glucose 80 (70-99(Fasting)) mg/dl Calcium 8.5 L (8.6-10.3) mg/dl Magnesium 1.7 (1.7-2.4) mg/dl Total Bilirubin 0.4 (0.2-1.0) mg/dl AST 14 (13-39) U/L ALT 12 (7-52) U/L Alkaline Phosphatase 100 (34-104) U/L Total Protein 5.4 L D (6.0-8.3) gm/dl Albumin 3.6 (3.4-5.0) gm/dl Globulin 1.8 L (2.5-4.0) gm/dl Albumin/Globulin Ratio 2.0 (0.9-2) Triglycerides 142 (0-150) mg/dl Cholesterol 89 (0-200) mg/dl LDL Cholesterol, Calc 37 mg/dl VLDL Cholesterol, Calc 28 (0-30) mg/dl HDL Cholesterol 24 mg/dl Cholesterol/HDL Ratio 3.7 (0-5) Lipase (11-82) U/L TSH 4.433 (0.300-4.500) uIu/ml Urine Color Yellow Urine Appearance Clear (Clear) Urine pH 5.5 (4.5-7.5) Ur Specific [place] 1.017 (1.000-1.030) Urine Protein Trace H (Negative) Urine Glucose (UA) Negative (Negative) Urine Ketones Negative (Negative) Urine Blood Negative (Negative) Urine Nitrite Negative (Negative) Urine Bilirubin Negative (Negative) Urine Urobilinogen Negative (Negative) Ur Leukocyte Esterase Negative (Negative) Urine WBC (Auto) 0-5 (0-5) /hpf Urine RBC (Auto) 0-2 (0-2) /hpf U Hyaline Cast (Auto) 0-2 (0-2) /lpf U Epithel Cells (Auto) 0-2 (0-2) /hpf Urine Bacteria (Auto) None Seen (None Seen) Stool Calprotectin Pending Stl C. cayetanensis PCR Not Detected (NotDetected) Stool Rotavirus A PCR Not Detected (NotDetected) Stl Adenov F 40/41 PCR Not Detected (NotDetected) Stool Astrovirus (PCR) Not Detected (NotDetected) Stool Campylobacter PCR Not Detected (NotDetected) Stl C. diff Tox B Gene Negative Cdiff Gene (Neg) Stool Cryptosporidium PCR Not Detected (NotDetected) Stl E.coli Shiga Tox PCR Not Detected (NotDetected) Stl Enterotoxigenic E PCR Not Detected (NotDetected) Stool EPEC (PCR) Not Detected (NotDetected) Stool EAEC (PCR) Not Detected (NotDetected) Stl E. histolytica PCR Not Detected (NotDetected) Stool Giardia Lamblia PCR Not Detected (NotDetected) Stool Salmonella PCR Not Detected (NotDetected) Stool Sapovirus (PCR) Not Detected (NotDetected) Stl P. shigelloides PCR Not Detected (NotDetected) Stl Shigella/EIEC PCR Not Detected (NotDetected) St Y.enterocolitica PCR Not Detected (NotDetected) Stool Vibrio (PCR) Not Detected (NotDetected) Stl Vibrio cholerae PCR Not Detected (NotDetected) Stl Norovirus GI/GII PCR Not Detected (NotDetected) 05/01/24 Range/Units 14:52 WBC 13.33 H (4.8-10.8) K/ul RBC 4.56 L (4.70-6.10) M/uL Hgb 14.0 (14.0-18.0) g/dl Hct 43.4 (42.0-52.0) % MCV 95.2 (80.0-100.0) fL MCH 30.7 (25.0-34.0) pg MCHC 32.3 (32.0-36.0) g/dL RDW Std Deviation 52.0 H (36.4-46.3) fL RDW Coeff of Marleen 14.8 H (11.5-14.5) % Plt Count 401 H (130-400) K/uL MPV 8.8 L (9.4-12.4) fL Immature Gran % (Auto) 0.5 % Neut % (Auto) 75.1 % Lymph % (Auto) 17.3 % [place]hen[place] % (Auto) 6.2 % Eos % (Auto) 0.7 % Baso % (Auto) 0.2 % Neut # (Auto) 10.03 H (1.40-6.50) K/uL Lymph # (Auto) 2.30 (1.20-3.40) K/uL [place] # (Auto) 0.83 H (0.11-0.59) K/uL Eos # (Auto) 0.09 (0.00-0.50) K/uL Baso # (Auto) 0.02 (0.00-0.20) K/uL Immature Gran # (Auto) 0.06 (0.01-0.20) K/uL Sodium 136 (136-145) mmol/L Potassium 4.3 (3.5-5.1) mmol/L Chloride 104 (98-107) mmol/L Carbon Dioxide 26 (21-32) mmol/L Anion Gap 6 (3-11) BUN 29 H (6-23) mg/dl Creatinine 1.60 H (0.6-1.4) mg/dl Est Cr Clr Drug Dosing 35.7 ml/min eGFR 41.96 BUN/Creatinine Ratio 18.1 (10-20) Glucose 90 (70-99(Fasting)) mg/dl Calcium 10.0 (8.6-10.3) mg/dl Magnesium 1.8 (1.7-2.4) mg/dl Total Bilirubin 0.6 (0.2-1.0) mg/dl AST 18 (13-39) U/L ALT 16 (7-52) U/L Alkaline Phosphatase 126 H (34-104) U/L Total Protein 6.8 (6.0-8.3) gm/dl Albumin 4.2 (3.4-5.0) gm/dl Globulin 2.6 (2.5-4.0) gm/dl Albumin/Globulin Ratio 1.6 (0.9-2) Triglycerides (0-150) mg/dl Cholesterol (0-200) mg/dl LDL Cholesterol, Calc mg/dl VLDL Cholesterol, Calc (0-30) mg/dl HDL Cholesterol mg/dl Cholesterol/HDL Ratio (0-5) Lipase 24 (11-82) U/L TSH (0.300-4.500) uIu/ml Urine Color Urine Appearance (Clear) Urine pH (4.5-7.5) Ur Specific [place] (1.000-1.030) Urine Protein (Negative) Urine Glucose (UA) (Negative) Urine Ketones (Negative) Urine Blood (Negative) Urine Nitrite (Negative) Urine Bilirubin (Negative) Urine Urobilinogen (Negative) Ur Leukocyte Esterase (Negative) Urine WBC (Auto) (0-5) /hpf Urine RBC (Auto) (0-2) /hpf U Hyaline Cast (Auto) (0-2) /lpf U Epithel Cells (Auto) (0-2) /hpf Urine Bacteria (Auto) (None Seen) Stool Calprotectin Stl C. cayetanensis PCR (NotDetected) Stool Rotavirus A PCR (NotDetected) Stl Adenov F 40/41 PCR (NotDetected) Stool Astrovirus (PCR) (NotDetected) Stool Campylobacter PCR (NotDetected) Stl C. diff Tox B Gene (Neg) Stool Cryptosporidium PCR (NotDetected) Stl E.coli Shiga Tox PCR (NotDetected) Stl Enterotoxigenic E PCR (NotDetected) Stool EPEC (PCR) (NotDetected) Stool EAEC (PCR) (NotDetected) Stl E. histolytica PCR (NotDetected) Stool Giardia Lamblia PCR (NotDetected) Stool Salmonella PCR (NotDetected) Stool Sapovirus (PCR) (NotDetected) Stl P. shigelloides PCR (NotDetected) Stl Shigella/EIEC PCR (NotDetected) St Y.enterocolitica PCR (NotDetected) Stool Vibrio (PCR) (NotDetected) Stl Vibrio cholerae PCR (NotDetected) Stl Norovirus GI/GII PCR (NotDetected) PG Care Time/CCT Total # of Minutes Spent Total Time Spent with Patient: Total time spent is greater than 50% in coordination of care (as documented) at patient's floor/unit and/or counseling patient: Coding Level of Care Code 73612 INT INP/OBS CARE 2MIN Diagnoses Diarrhea R19.7
--- NOTE | 2024-05-02 14:29 | Anesthesiology Consultation ---
Date of Service May 02, 2024 Assessment & Plan Chart Review Chart Review: Acceptable Risk for Surgery ASA ASA3 Proposed Anesthesia Anesthesia Type: MAC Risk / Benefits Reviewed With: PT / POA / Parent / Guardian History Surgery Operation Date: 05/02/24 17:25 Proposed Procedures p Flexible Sigmoidoscopy Inder Loving MD s Esophagogastroduodenoscopy Inder Loving MD Height/Weight Height: 5 ft 7 in Weight: 89.1 kg Allergies Allergy/AdvReac Type Severity Reaction Status Date / Time No Known Allergies Allergy Verified 05/02/24 14:11 Medications Home Medications Medication Instructions Recorded Confirmed Last Taken acetaminophen 500 mg tablet 1,000 mg PO Q6H PRN Pain 02/15/22 05/01/24 Unknown (Tylenol Extra Strength) allopurinol 100 mg tablet 100 mg PO BID 02/15/22 05/01/24 02/15/22 08:00 aspirin 81 mg tablet,delayed 81 mg PO DAILY 02/15/22 02/15/22 02/15/22 release diltiazem HCl 120 mg 120 mg PO DAILY 02/15/22 05/01/24 02/15/22 capsule,extended release 24 hr (Cardizem CD) furosemide 20 mg tablet 20 mg PO DAILY 02/15/22 05/01/24 02/15/22 metoprolol succinate 50 mg 50 mg PO DAILY 02/15/22 05/01/24 02/15/22 tablet,extended release 24 hr multivitamin 1 tab PO DAILY 02/15/22 05/01/24 02/15/22 omeprazole 20 mg capsule,delayed 20 mg PO DAILY 02/15/22 05/01/24 02/15/22 release potassium chloride 10 mEq 10 meq PO DAILY 02/15/22 05/01/24 02/15/22 tablet,extended release sennosides 8.6 mg capsule (senna) 8.6 mg PO DAILY PRN Constipation 02/15/22 05/01/24 Unknown atorvastatin 40 mg tablet 40 mg PO QAM 05/01/24 05/01/24 Unknown hydrocodone 5 mg-acetaminophen 325 1 tab PO TID PRN Pain 05/01/24 05/01/24 Unknown mg tablet ondansetron HCl 4 mg tablet 4 mg PO Q8H PRN Nausea And Vomiting 05/01/24 05/01/24 Unknown pantoprazole 40 mg tablet,delayed 40 mg PO BID 05/01/24 05/01/24 Unknown release sucralfate 1 gram tablet 1 g PO .AC/HS 05/01/24 05/01/24 Unknown Active Medications Generic Name Dose Route Start Last Admin Trade Name Averyq PRN Reason Stop Dose Admin Allopurinol 100 mg 05/02/24 09:00 05/02/24 08:45 Allopurinol 100 Mg Tab PO 06/01/24 08:59 100 mg BID ANGELIC Administration Atorvastatin Calcium 40 mg 05/02/24 09:00 05/02/24 08:46 Atorvastatin 40 Mg Tab PO 06/01/24 08:59 40 mg QAM ANGELIC Administration Diltiazem HCl 120 mg 05/02/24 09:00 05/02/24 08:46 Diltiazem Hcl 120 Mg Capcr PO 06/01/24 08:59 120 mg DAILY ANGELIC Administration Sodium Chloride 1,000 mls @ 80 mls/hr 05/01/24 19:45 05/02/24 08:45 Nss IV 05/02/24 19:44 80 mls/hr .[id number] ANGELIC Administration Pantoprazole Sodium 40 mg in 10 mls @ 5 mls/min 05/01/24 21:00 05/02/24 08:48 Protonix IV 05/31/24 20:59 5 mls/min BID ANGELIC Administration Metoprolol Succinate 50 mg 05/02/24 09:00 05/02/24 08:45 Metoprolol Succ 50mg Ext Rel Tab PO 06/01/24 08:59 50 mg DAILY ANGELIC Administration NPO Date Last Intake of Fluids: 05/01/24 Time Last Intake of Fluids: 20:00 Date Last Intake of Solids: 05/01/24 Time Last Intake of Solids: 17:00 Past Medical History Medical History (Updated 05/01/24 @ 20:20 by Je Golden DO) Lacunar infarct, acute Prostate cancer Exercise / Class Metabolic Activity II 4-5 Yardwork/Stairs/Walk up hill Past Surgical History Surgical History H/O prostatectomy Hx of CABG Past Anesthesia History No Hx of Anesthesia Complications Social History Smoking Status: Former smoker Do You Dip or Chew Tobacco: No Hx Alcohol Use: No Hx Substance Use: No substance use type: does not use Physical Exam Vital Signs Last Vital Signs Temp 36.4 C L 05/02/24 14:12 Pulse 64 05/02/24 14:12 Resp 16 05/02/24 14:12 BP 128/66 05/02/24 14:12 Pulse Ox 96 05/02/24 14:12 O2 Del Method Room Air 05/02/24 14:12 ENMT Thyromental Distance: > or= 3.5 Finger Breadths Mallampati Class: II Respiratory normal respiratory effort Auscultation: lungs clear to auscultation bilaterally Cardiovascular Rate/Rhythm: regular rate and regular rhythm Testing Laboratory Results 05/02/24 07:24 05/02/24 07:24 Urine Color Yellow 05/02/24 09:00 Urine Appearance Clear (Clear) 05/02/24 09:00 Urine pH 5.5 (4.5-7.5) 05/02/24 09:00 Ur Specific [place] 1.017 (1.000-1.030) 05/02/24 09:00 Urine Protein Trace (Negative) H 05/02/24 09:00 Urine Glucose (UA) Negative (Negative) 05/02/24 09:00 Urine Ketones Negative (Negative) 05/02/24 09:00 Urine Nitrite Negative (Negative) 05/02/24 09:00 Ur Leukocyte Esterase Negative (Negative) 05/02/24 09:00 Urine WBC (Auto) 0-5 /hpf (0-5) 05/02/24 09:00 Urine RBC (Auto) 0-2 /hpf (0-2) 05/02/24 09:00 U Hyaline Cast (Auto) 0-2 /lpf (0-2) 05/02/24 09:00 U Epithel Cells (Auto) 0-2 /hpf (0-2) 05/02/24 09:00 Urine Bacteria (Auto) None Seen (None Seen) 05/02/24 09:00
--- NOTE | 2024-05-02 15:35 | GI REPORT ---
[facility] Patient: JACOB COHEN : 1940 Sex at : Male Age: 83 Years Procedure: Flexible Sigmoidoscopy Date: 05/02/2024 Attending Physician: Latrell Loving MD Referring MD: Indications: - Chronic diarrhea Medications: - See the Anesthesia note for documentation of the administered medications Complications: - No immediate complications. Estimated Blood Loss: - Estimated blood loss was minimal. Procedure: - Prior to the procedure, a History and Physical was performed, and patient medications and allergies were reviewed. The patient's tolerance of previous anesthesia was also reviewed. The risks and benefits of the procedure and the sedation options and risks were discussed with the patient. All questions were answered, and informed consent was obtained. Prior Anticoagulants: The patient has taken no anticoagulant or antiplatelet agents. ASA Grade Assessment: III - A patient with severe systemic disease. After reviewing the risks and benefits, the patient was deemed in satisfactory condition to undergo the procedure. - The pediatric colonoscope was introduced through the anus and advanced to the left transverse colon. - The flexible sigmoidoscopy was accomplished without difficulty. - The patient tolerated the procedure well. - The quality of the bowel preparation was fair. Findings: - Internal hemorrhoids were found during retroflexion. The hemorrhoids were Grade I (internal hemorrhoids that do not prolapse). - Biopsies for histology were taken with a cold forceps from the left colon for evaluation of microscopic colitis. Estimated blood loss was minimal. - Multiple medium-mouthed diverticula were found in the sigmoid colon. Impression: - Preparation of the colon was fair. - Internal hemorrhoids. - Biopsies were taken with a cold forceps from the left colon for evaluation of microscopic colitis. - Diverticulosis in the sigmoid colon. Recommendation: - Await pathology results. - Start 1 tablespoon fiber daily, use cholestyramine if diarrhea returns can give 4 g twice daily. No evidence of IBD noted biopsies taken for microscopic colitis. Start a lactose-free regular diet. GI will sign off and follow-up on the biopsies Procedure Code(s): - 02765, Sigmoidoscopy, flexible; with biopsy, single or multiple Diagnosis Code(s): - K52.9, Noninfective gastroenteritis and colitis, unspecified - K64.0, First degree hemorrhoids - K57.30, Diverticulosis of large intestine without perforation or abscess without bleeding CPT(R) - 2023 copyright [employer]. All Rights Reserved. The CPT codes, CCI edits and ICD codes generated are intended as suggestions and were generated based on input data. These codes are preliminary and upon insurance coder review may be revised to meet current compliance and payer requirements. The provider is responsible for the final determination of appropriate codes, and modifiers. Latrell Loving MD This document has been electronically signed. Note Initiated:05/02/2024 Note Completed:05/02/2024 3:34 PM \\[email or web address]\Data\Provation\Results\LIVE\[id number]
--- NOTE | 2024-05-02 15:38 | GI REPORT ---
[facility] Patient: JACOB COHEN : 1940 Sex at : Male Age: 83 Years Procedure: Upper GI endoscopy Date: 05/02/2024 Attending Physician: Latrell Loving MD Referring MD: Indications: - Esophageal reflux - Weight loss Medications: - Monitored Anesthesia Care Complications: - No immediate complications. Estimated Blood Loss: - Estimated blood loss: None. Procedure: - Prior to the procedure, a History and Physical was performed, and patient medications and allergies were reviewed. The patient's tolerance of previous anesthesia was also reviewed. The risks and benefits of the procedure and the sedation options and risks were discussed with the patient. All questions were answered, and informed consent was obtained. Prior Anticoagulants: The patient has taken no anticoagulant or antiplatelet agents. ASA Grade Assessment: III - A patient with severe systemic disease. After reviewing the risks and benefits, the patient was deemed in satisfactory condition to undergo the procedure. - The pediatric colonoscope was introduced through the mouth and advanced to the third part of the duodenum. - The upper GI endoscopy was accomplished without difficulty. - The patient tolerated the procedure well. Findings: - A small hiatal hernia was present. - Moderate inflammation characterized by erythema and congestion (edema) was found in the entire examined stomach. Biopsies were taken with a cold forceps for Helicobacter pylori testing. - Diffuse mild mucosal changes characterized by flattening were found in the duodenal bulb. Biopsies for histology were taken with a cold forceps for evaluation of celiac disease. Estimated blood loss was minimal. Impression: - Small hiatal hernia. - Acute gastritis, characterized by erythema and congestion (edema). Biopsied. - Mucosal changes in the duodenum. Biopsied. Recommendation: - Await pathology results. - Start up 20 mg Prilosec or Protonix. Follow-up biopsies. Start a lactose-free diet. Procedure Code(s): - 54262, Esophagogastroduodenoscopy, flexible, transoral; with biopsy, single or multiple Diagnosis Code(s): - K21.9, Gastro-esophageal reflux disease without esophagitis - R63.4, Abnormal weight loss - K44.9, Diaphragmatic hernia without obstruction or gangrene - K29.00, Acute gastritis without bleeding - K31.89, Other diseases of stomach and duodenum CPT(R) - 202 copyright [employer]. All Rights Reserved. The CPT codes, CCI edits and ICD codes generated are intended as suggestions and were generated based on input data. These codes are preliminary and upon glass tinter review may be revised to meet current compliance and payer requirements. The provider is responsible for the final determination of appropriate codes, and modifiers. Latrell Loving MD This document has been electronically signed. Note Initiated:05/02/2024 Note Completed:05/02/2024 3:37 PM \\[email or web address]\Provation\Results\LIVE\[id number]
--- NOTE | 2024-05-02 15:48 | Anesthesiology Progress Note ---
Date of Service May 02, 2024 Anesthesia Post Procedure Vital Signs Vital Signs: Temp Pulse Pulse Resp BP BP Pulse Ox 05/02/24 15:32 61 18 100/42 L 95 05/02/24 14:12 36.4 C L 64 16 128/66 96 05/02/24 07:45 36.6 C 63 16 116/60 94 05/01/24 22:05 36.5 C 73 18 144/63 H 95 05/01/24 22:05 36.5 C 73 18 144/63 H 95 05/01/24 21:43 05/01/24 20:13 78 05/01/24 20:00 78 20 123/60 96 05/01/24 18:30 73 18 94 05/01/24 18:00 71 18 108/55 L 95 05/01/24 17:00 72 20 115/54 L 94 05/01/24 16:15 67 05/01/24 16:00 71 23 106/46 L 93 O2 Del Method O2 Flow Rate 05/02/24 15:32 Oxymask 5 05/02/24 14:12 Room Air 05/02/24 07:45 Room Air 05/01/24 22:05 Room Air 05/01/24 22:05 Room Air 05/01/24 21:43 Room Air 05/01/24 20:13 05/01/24 20:00 Room Air 05/01/24 18:30 Room Air 05/01/24 18:00 Room Air 05/01/24 17:00 Room Air 05/01/24 16:15 05/01/24 16:00 Room Air Transfer of Care Handoff Completed per policy Notes Mental Status: alert / awake / arousable and participated in evaluation Patient Amnestic to Procedure: Yes Nausea / Vomiting: adequately controlled Pain: adequately controlled Airway Patency, RR, SpO2: stable & adequate BP & HR: stable & adequate Hydration State: stable & adequate Anesthetic Complications: no major complications apparent and Pt Satisfied with anesthetic care
[2024-05-02] MEDS: LIDOCAINE 2% 2 ML VIAL/AMP(20MG/ML) INFIL ONE (15:57)
[2024-05-02] MEDS: PROPOFOL IV EMULSION 10 MG/ML 20 ML VIAL IV ONE (15:57)
--- NOTE | 2024-05-02 16:15 | Hospitalist Progress Note ---
"Date of Service May 02, 2024 Assessment & Plan (1) Diarrhea: Plan: Zechariah is a 83M with a PMHx significant for CAD (s/p CABG in 2017), HTN, HLD, GERD and gout who presents with ongoing diarrhea since February 06, that has gotten acutely worse. He had a recent stay at [facility] for the same complaints and received IV fluids and arranged outpatient GI follow-up. Presented after having 15 watery stools in the last 24 hours, admitted for further workup and GI evaluation. #Acute on chronic diarrhea Stool BioFire and C. difficile negative. Fecal calprotectin pending GI consultedstatus post EGD and flex sigmoidoscopy. EGD showing acute gastritis and mucosal changes in the duodenum. Sigmoidoscopy without concerns for IBD. recommend starting fiber daily, add Colesytramine if diarrhea continues. Continue daily PPI. Start lactose-free diet Biopsies pending for microscopic colitis, celiac disease and H. pylori #JESIKA Creatinine 1.6 on admission, baseline ~ 1.1-1.2. Received IV fluids and creatinine has improved. #CAD/CABG in 2017 | HTN No chest pain at present. Continue aspirin, atorvastatin, diltiazem, furosemide, metoprolol Dyslipidemiacontinue home statin. Lipid panel shows good control. Dispo: Continued inpatient stay, monitoring diarrhea, if this improves possible discharge tomorrow DVT prophylaxis, low risk encourage ambulation Admission and Anticipated Discharge Date Admission Date: May 01, 2024 Subjective patient seen sitting up in the chair prior to his [place], alert and oriented and pleasant. Reports that he feels well currently did have some nausea when he came in but then was able to eat dinner last night Reports that he does go days without having diarrhea but then sometimes the diarrhea is very frequent Denies any abdominal pain at present or when he normally has episodes of diarrhea Review of Systems Review of Systems: All systems reviewed & are unremarkable except as noted in Subjective Physical Exam Physical Exam: General: NAD, VS as above , sitting up in the chair very pleasant Resp: normal respiratory effort, lungs clear to auscultation CV: RRR, no murmur, Abd: mildly distended, nontender Extremities: Moves all extremities, Neuro: A&O x3, Skin: intact, no lesions noted Results & Data Results & Data Vital Signs (Past 12 Hours) Vital Signs Temp Pulse Resp BP Pulse Ox O2 Del Method O2 Flow Rate 05/02/24 16:02 71 18 140/64 96 Room Air 05/02/24 15:47 65 18 113/51 L 95 Room Air 05/02/24 15:32 61 18 100/42 L 95 Oxymask 5 05/02/24 14:12 97.5 F L 64 16 128/66 96 Room Air 05/02/24 07:45 97.9 F 63 16 116/60 94 Room Air Laboratory Results CBC and chemistry reviewed TSH and lipid panel reviewed UA reviewed Stool bio fire and C. difficile reviewed PG Care Time/CCT Total # of Minutes Spent Total Time Spent with Patient: Total time spent is greater than 50% in coordination of care (as documented) at patient's floor/unit and/or counseling patient: Coding Level of Care Code 54466 SUB INP/OBS CARE 3/50MIN Diagnoses Diarrhea R19.7"
[2024-05-02] MEDS: PSYLLIUM or GUAR GUM FIBER 4GM PACKET PO SCH (17:43)
[2024-05-02] MEDS: MELATONIN 3 MG TAB PO PRN (21:28)
[2024-05-03 07:45] VITALS: BP 126/64; PULSE 71; RESP 16; TEMP 98.2; O2SAT 93
[2024-05-03] MEDS: PANTOprazole 40 MG TAB PO SCH (08:15)
--- NOTE | 2024-05-03 10:30 | Discharge Summary ---
"Discharge Summary Date of Service May 03, 2024 Principal Dx & Hospital Course #1 = Principal Diagnosis (1) Diarrhea: Plan #Acute on chronic diarrhea Zechariah is a 83M with a PMHx significant for CAD (s/p CABG in 2017), HTN, HLD, GERD and gout who presents with ongoing diarrhea since February 06, that has gotten acutely worse. He had a recent stay at [facility] for the same complaints and received IV fluids and arranged outpatient GI follow-up. Presented after having 15 watery stools in the last 24 hours, admitted for further workup and GI evaluation. Stool BioFire and C. difficile negative. Fecal calprotectin pending. GI consultedstatus post EGD and flex sigmoidoscopy. EGD showing acute gastritis and mucosal changes in the duodenum. Sigmoidoscopy without concerns for IBD. recommend starting fiber daily, add Cholestyramine if diarrhea continues (rx sent in for this). Continue daily PPI. Start lactose- free diet. No diarrhea since scopes. Tolerated meals with out nausea. Biopsies pending for microscopic colitis, celiac disease and H. pylori Daughter updated on plan of care. Gastric emptying study may be presued as outpatient if biopsy results come back unrevealing and symptpoms continue. #JESIKA Creatinine 1.6 on admission, baseline ~ 1.1-1.2. Received IV fluids and creatinine has improved. #CAD/CABG in 2017 | HTN No chest pain at present. Continue aspirin, atorvastatin, diltiazem, furosemide, metoprolol Dyslipidemiacontinue home statin. Lipid panel shows good control. Dispo:discharge to home today, outpatient GI follow up. Notes For Next Care Provider outpatient GI follow up needed Medication Changes From Visit add fiber zofran refilled per pt request Admission HPI Per Admitting Provider This is a pleasant 83-year-old male whose had ongoing intermittent diarrhea since January 2024. Over the last 2 weeks it has been more voluminous and frequent. Patient was recently hospitalized at [facility] for 4 days this was last week. He was hydrated and discharged to follow-up with outpatient GI which she saw yesterday in the office. 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 Over the last 24 hours the patient has had 15 episodes of voluminous watery diarrhea. He had 1 episode in the ER which was approximately 600 cc. It has been sent for stool bio fire which is pending at the time of this dictation. Laboratory studies reflected acute kidney injury with a creatinine of 1.6 with a baseline of approximately 1.1. The patient's course in emergency department he received a dose of IV Reglan and a liter of normal saline. CT of the abdomen pelvis was nonacute demonstrated bilateral inguinal hernias, atherosclerosis specifically of the left common iliac. With bilateral renal cyst. We are admitting the patient. We have consulted GI for EGD in the a.m. Our initial plan was to place patient on clear liquids with n.p.o. after midnight, however while in the emergency department verbal order was received that he could have a regular diet and he ate spareribs with chicken and rice. Therefore we will now place the patient on clear liquids and n.p.o. after midnight for probable EGD in the morning with GI again whom I already communicated with this evening. Discharge Exam General: NAD, VS as above , sitting up in the chair very pleasant Resp: normal respiratory effort, lungs clear to auscultation CV: RRR, no murmur, Abd: soft, nondistended, + bowel sounds, nontender Extremities: Moves all extremities, Neuro: A&O x3, Skin: intact, no lesions noted Discharge Plan Discharge Items Patient Disposition: Home - Self-Care Reason For Visit: DIARRHEA Discharge Diagnosis: Diarrhea Activity: Resume your previous activity Weightbearing: Full weightbearing Non-emergency contact: Primary Care Provider and Expedition Supervisor Call non-emergency contact if: you have any medication questions, your symptoms worsen, your pain is worsening, your pain is concerning for you and your temperature is above 101 Follow-up/Referrals: Sonya Miller CRNP [Outside Practitioners] - (Follow up within 2-3 weeks ) Isauro Amanda MD [Primary Care Provider] - (follow up within one week ) Diet: Regular and Lactose Intolerant Addtl Attending Provider Instructions: Mr. Esqueda, You were hospitalized after having continued diarrhea. You were seen by the GI team who preformed an EGD and flexible sigmoidoscopy as part of your workup. There are biopsies pending for celiac disease, h.pylori and microscopic colitis. 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 Your kidney function has improved and stable for discharge home with GI follow up. If you are having large amounts of diarrhea, do not take your lasix that day as that will contribute to the dehydration and worsening kidney function. There is a chance the aspirin is contributing to the gastritis, however since you had a CABG, it is more important to continue your daily aspirin. Recommendations: * Follow a lactose free diet * Increase fiber intake, with daily fiber supplement (1 tablespoon daily). Metamucil works great. * If diarrhea returns recommend starting cholestyramine 4g twice daily (this has been sent to the pharmacy in case you need it) * Continue Protonix * Follow up with [facility] GI team * Make sure you are staying hydrated. * We know that your diarrhea was not infectious, so okay to take Imodium if needed as well. Activity: You can do normal everyday activities as your body allows. Take rest breaks if you feel tired. Do not overexert. Stop activity if you have pain, shortness of breath or feel dizzy. Follow-up appointments: Make an appointment with your primary care physician within one week of discharge. A copy of this summary will be sent to them. Every time you see your primary care physician, or any other doctor, bring your medication list, and a list of questions. CONTACT YOUR PRIMARY CARE PROVIDER if you experience any of the following: Shortness of breath or difficulty breathing Fevers or chills Feeling tired with normal activity or experiencing dizziness or fainting Difficulty following your treatment plan, or difficulty taking medications CALL 911 OR GO TO THE EMERGENCY DEPARTMENT if you experience any of the following: Severe abdominal pain or nausea/vomiting Severe chest pain, or chest pain that radiates (moves) to your jaw or arm Sudden, severe shortness of breath or difficulty breathing Thank you for allowing us to participate in your care. Pending Studies at Discharge: Yes (EGD biopsies ) Stand-Alone Forms: My [facility] Medications and DC Order Prescriptions: New cholestyramine (with sugar) 4 gram powder 4 g PO BID Qty: 378 0RF Rx Instructions: administer w/meal; avoid other meds within 1hr before or 4-6hr after dose. Only start if diarrhea not resolved with fiber Continued multivitamin Tablet 1 tab PO DAILY metoprolol succinate 50 mg tablet extended release 24 hr 50 mg PO DAILY potassium chloride 10 mEq tablet extended release 10 meq PO DAILY allopurinol 100 mg tablet 100 mg PO BID aspirin 81 mg Tablet,Delayed Release (Dr/Ec) 81 mg PO DAILY diltiazem HCl [Cardizem CD] 120 mg Capsule,Extended Release 24hr 120 mg PO DAILY furosemide 20 mg tablet 20 mg PO DAILY senna 8.6 mg Capsule 8.6 mg PO DAILY PRN (Reason: Constipation) atorvastatin 40 mg tablet 40 mg PO QAM hydrocodone-acetaminophen 5-325 mg tablet 1 tab PO TID PRN (Reason: Pain) ondansetron HCl 4 mg tablet 4 mg PO Q8H PRN (Reason: Nausea And Vomiting) Qty: 12 0RF Changed acetaminophen [Tylenol Extra Strength] 500 mg Tablet 1,000 mg PO Q8H PRN (Reason: Pain) Qty: 0 0RF pantoprazole 40 mg tablet,delayed release (DR/EC) 40 mg PO QAM Qty: 0 0RF Held sucralfate 1 gram tablet 1 g PO .AC/HS Hold Instructions: Provider's Order - can restart if having abdominal pain Discontinued omeprazole 20 mg capsule,delayed release(DR/EC) 20 mg PO DAILY Discharge Orders: Discharge Order (Routine); Ordered 05/03/24 Ordered By: Jodie Sanches/Other Patient Handouts: Tips for Lactose Intolerance, Understanding Gastritis Admission Data Admit Date/Time: 05/01/24 19:26 Attending Provider: Richie Soto Admit Provider: Zechariah Romano Primary Care Provider: Isauro Amanda Other Providers: Zechariah Romano; Latrell Loving Other Interventions: Discharge Summary Assessment (RN) Last Done: 05/02/24 15:50 Hospital Stay Data Consultations 05/01/24 18:51 ED Decision to Admit Stat 05/01/24 19:26 Consult Gastroenterology Routine Procedures Performed Operation Date: 05/02/24 17:25 Actual Procedures p EGD Biopsy Cytology - Latrell Loving MD s Flexible Sigmoidoscopy Biopsy - Latrell Loving MD Diagnostic Imagining Performed Abdomen/Pelvis CT 05/01/24 15:27 Clinical History: Diarrhea Technique: Axial computed tomography images were obtained of the abdomen and pelvis after the administration of intravenous contrast. No prior CT is available for comparison. Findings: The liver is overall of normal size, attenuation, and contour with no sign of cirrhosis or significant fatty infiltration. No liver mass lesion is seen. The portal vein is patent. The gallbladder appears unremarkable. No bile duct dilatation is noted. The spleen is of normal size. No focal splenic lesion is evident. The pancreas appears normal with no sign of acute or chronic pancreatitis and no mass lesion noted. The pancreatic duct is of normal caliber. The adrenal glands appear unremarkable. No definite renal or proximal ureteral calculi are seen on this contrast-enhanced study. There is no hydronephrosis or perinephric stranding. No renal mass lesion is identified. There are bilateral renal cortical and peripelvic cysts, measuring up to 4.3 cm. The aorta is of normal caliber. There is extensive multifocal atherosclerotic plaque. No abdominal adenopathy is seen. The stomach appears normal. There is no sign of small bowel obstruction. The colon appears unremarkable. The appendix appears normal also. No free intraperitoneal fluid or air is identified. No distal ureteral or bladder calculi are seen. No bladder mass lesion is evident. The iliac arteries are of normal caliber. There is an apparent severe stenosis of the left common iliac artery. No pelvic adenopathy is noted. The prostate appears to have been removed. There are left larger than right inguinal hernias containing only fat The lungs bases appear clear. There is an L5-S1 fusion. There is grade 2 anterolisthesis at L5-S1. There is a right hip replacement. There is lumbar scoliosis and degenerative disc disease. No fracture is identified. No focal osseous lesion is seen Impression: 1. Bilateral renal cysts 2. 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 Bilateral inguinal hernias containing only fat Electronically signed by Jim Gan 05-01-2024 5:50 PM Pending Results Patient Have Any Pending Studies at Discharge: Yes (EGD biopsies ) Discharge Instructions Given to Patient (Per Discharging Provider) Mr. Esqueda, You were hospitalized after having continued diarrhea. You were seen by the GI team who preformed an EGD and flexible sigmoidoscopy as part of your workup. There are biopsies pending for celiac disease, h.pylori and microscopic colitis. 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 Your kidney function has improved and stable for discharge home with GI follow up. If you are having large amounts of diarrhea, do not take your lasix that day as that will contribute to the dehydration and worsening kidney function. There is a chance the aspirin is contributing to the gastritis, however since you had a CABG, it is more important to continue your daily aspirin. Recommendations: * Follow a lactose free diet * Increase fiber intake, with daily fiber supplement (1 tablespoon daily). Metamucil works great. * If diarrhea returns recommend starting cholestyramine 4g twice daily (this has been sent to the pharmacy in case you need it) * Continue Protonix * Follow up with [facility] GI team * Make sure you are staying hydrated. * We know that your diarrhea was not infectious, so okay to take Imodium if needed as well. Activity: You can do normal everyday activities as your body allows. Take rest breaks if you feel tired. Do not overexert. Stop activity if you have pain, shortness of breath or feel dizzy. Follow-up appointments: Make an appointment with your primary care physician within one week of discharge. A copy of this summary will be sent to them. Every time you see your primary care physician, or any other doctor, bring your medication list, and a list of questions. CONTACT YOUR PRIMARY CARE PROVIDER if you experience any of the following: Shortness of breath or difficulty breathing Fevers or chills Feeling tired with normal activity or experiencing dizziness or fainting Difficulty following your treatment plan, or difficulty taking medications CALL 911 OR GO TO THE EMERGENCY DEPARTMENT if you experience any of the following: Severe abdominal pain or nausea/vomiting Severe chest pain, or chest pain that radiates (moves) to your jaw or arm Sudden, severe shortness of breath or difficulty breathing Thank you for allowing us to participate in your care. Total Time Total Time Spent Total Time Spent (In Minutes): Time spent day of discharge 42 minutes including direct patient care, medication reconciliation, documentation, review of labs and images, and coordination of care. Daughter updated by phone Coding Level of Care Code 38735 INP/OBS DISCH >30 MIN Diagnoses Diarrhea R19.7"
== END 2024-05-03 12:45 | disposition home or self-care (01) | DRG 392 ==
LOC: ED 14:16 → SUATTDRO 19:26 → 3N 19:26